=== PATIENT | male | born 1980 | race Caucasian/White ===

== ENCOUNTER 2018-11-17 20:59 | Emergency (ER) | payer SELFPAY ==
[2018-11-17 21:00] VITALS: BP 124/75; PULSE 81; RESP 15; TEMP 36.3; BMI 23.7
--- NOTE | 2018-11-17 21:10 | EKG12_ITS ---
Test Reason : GEN ILLNESS Blood Pressure : / mmHG Vent. Rate : 067 BPM Atrial Rate : 067 BPM P-R Int : 152 ms QRS Dur : 112 ms QT Int : 436 ms P-R-T Axes : 064 058 -14 degrees QTc Int : 460 ms Normal sinus rhythm Nonspecific T wave abnormality Prolonged QT Abnormal ECG Confirmed by ANTONIA MARTINO, JENNIFER ([id number]), department editor SUSAN BRISENO ([id number]) on 11/21/2018 4:34:22 PM Referred By: COOKIE Confirmed By:JENNIFER KNIGHT MD
--- NOTE | 2018-11-17 21:11 | ED.VISSUMM ---
- ER Visit Summary Date of Service: 11/17/18 Chief Complaint: Headache and sinus congestion History of Present Illness: The patient is a 38 M who has a headache and sinus congestion. He then tells me he has chest pain. He has had this for 2 days. He denies a cough or ear pain. He has not had a fever. He has pain in the left side of the chest. He denies any shortness of breath. He states it is hard to breathing through his nose due to the congestion. He took an Excedrin at 2:00 today which has not helped. Denies any other symptoms. He is a smoker. Physical Examination: Vital signs reviewed. HEENT exam reveals sinus congestion with swollen turbinates bilaterally. Heart is regular rate and rhythm without murmurs. Lungs have normal sounds. He has left axillary chest tenderness to palpation. Abdomen soft nontender. Extremities reveal no edema. Skin exam reveals no rashes. Neurologic exam is at baseline. Test Results: EKG was obtained and was normal sinus rhythm with no ischemic changes. Emergency Department Course and Treatment: Patient appears to have a URI. His pain is likely musculoskeletal. I do not feel is cardiac in nature. Patient will be treated with Mucinex D. He will follow-up with his primary care physician. Treatment Plan: [] Disposition: Discharge Impression: Sinusitis This note was generated with [employer] dictation software. It may contain incorrect words, spelling, and punctuation that were not noted in review of the chart prior to signing ED Disposition - Plan for ED Patient: Chief Complaint: General Illness Referrals: Care Physician,No Primary [Primary Care Provider] -
--- NOTE | 2018-11-17 21:13 | ED.DEP ---
ED Disposition - Plan for ED Patient: Disposition: Home or Assisted Living Chief Complaint: General Illness Instructions: ED Upper Resp Infec No Abx Tx Prescriptions: Guaifenesin/Pseudoephedrne HCl [Mucinex D ER 600-60 mg Tablet] 1 ea PO BID #14 tab.er.12h Referrals: Care Physician,No Primary [Primary Care Provider] -
[2018-11-17 21:57] VITALS: BP 126/86; PULSE 88; RESP 16; O2SAT 98
== END 2018-11-17 21:57 | disposition home or self-care (01) ==
LOC: ED 21:21
PROVIDERS: Emergency Provider Emergency Medicine
DX: J01.90 Acute sinusitis, unspecified (principal); R07.9 Chest pain, unspecified; F17.200 Nicotine dependence, unspecified, uncomplicated
CPT/HCPCS: 93005; 99282

== ENCOUNTER 2019-03-16 18:34 | Emergency (ER) | payer SELFPAY ==
[2019-03-16 18:36] VITALS: BP 131/95; PULSE 79; RESP 17; TEMP 36.7; O2SAT 96; BMI 23.7
--- NOTE | 2019-03-16 19:34 | ED.VISSUMM ---
- ER Visit Summary Date of Service: 03/16/19 Chief Complaint: Nail in left index finger History of Present Illness: The patient is a 38 M who presents 1 hour after accidentally shooting a nail into his left index finger using a nail gun. Patient states his tetanus is updated within the last 5 years. He is having pain, worse with trying to move the finger. He denies any other injuries. Physical Examination: Awake and alert in no distress. Patient has a nail in the left index finger at the level of the PIP joint, PIP joint in a state of partial flexion, patient unable to flex or extend the joint any further due to position of nail, cap refill intact distally, sensation intact. No other injury noted. Test Results: [ Clinical Impression(s) from Imaging Studies Finger X-Ray 03/16/19 19:40 IMPRESSION: 1. Second digit metallic foreign body in the soft tissues. No fractures seen. Electronically Signed: Tapan Piedra MD at 19:54 EDT , Service support , Medications Given Discontinued Medications Hydrocodone Bitart/Acetaminophen (Polaris 5mg-325mg) 1 tablet PO X1 ONE Stop: 03/16/19 19:36 Last Admin: 03/16/19 19:46 Dose: 1 tablet Hydrocodone Bitart/Acetaminophen (Polaris 5mg-325mg) 0 tablet PO .TAKE HOME MED HARSH Last Admin: 03/16/19 22:54 Dose: 4 tablet Hydrocodone Bitart/Acetaminophen (Polaris 5mg-325mg) 1 tablet PO X1 ONE Stop: 03/16/19 22:40 Last Admin: 03/16/19 22:54 Dose: 1 tablet Cephalexin (Keflex) 500 mg PO X1 ONE Stop: 03/16/19 22:40 Last Admin: 03/16/19 22:55 Dose: 500 mg Lidocaine HCl (Lidocaine Hcl 1% Mdv) 0 ml INFILT X1 ONE Stop: 03/16/19 19:53 Last Admin: 03/16/19 22:55 Dose: 10 ml Naproxen (Naprosyn) 500 mg PO X1 ONE Stop: 03/16/19 22:40 Last Admin: 03/16/19 22:55 Dose: 500 mg Emergency Department Course and Treatment: Patient was certain that his tetanus was updated within the last few years. Patient was given Polaris for pain. X-ray showed no bony involvement. The index finger and base of it were copiously cleansed with Betadine. A digital block was performed of the index finger with 8 cc of lidocaine without epinephrine. Good anesthesia was achieved. The nail was easily removed with gentle pressure. The resulting puncture wounds were then copiously irrigated with sterile saline. Patient was given additional medication for pain. He was also started on Keflex for infection prophylaxis. Patient had pain with attempts to move the PIP joint but passive range of motion was intact. The finger was splinted and patient was given follow-up with orthopedics. He was discharged home with prescription for naproxen for mild to moderate pain, Polaris for severe pain and Keflex for antibiotic prophylaxis. Patient is to return if any further concerns. Discharged home in improved condition. Treatment Plan: [] Disposition: [] Impression: Foreign body in the left index finger, nail in soft tissue of left index finger without bony involvement status post removal This note was generated with [employer] dictation software. It may contain incorrect words, spelling, and punctuation that were not noted in review of the chart prior to signing ED Disposition - Plan for ED Patient: Disposition: Home or Assisted Living Instructions: ED Foreign Body Soft Tissue Removed Prescriptions: Hydrocodone Bitart/Apap 5-325 [Polaris 5MG-325MG] 1 tab PO Q6H PRN PRN 3 Days #10 tab PRN Reason: Pain Cephalexin [Keflex] 500 mg PO Q6 #40 cap RX: Naproxen [Naprosyn] 500 mg PO BID PRN #20 tab Referrals: Care Physician,No Primary [[facility] Care Provider[facility]-5 Days if not improving Arlin Lau DO [STAFF PHYSICIAN] - As soon as possible Additional Instructions: Please take the antibiotic as prescribed for the full course even if you feel better before it is complete. You may use the naproxen for mild to moderate pain in the Polaris for severe pain. Keep the hand clean and keep the areas of injury clean and dry. Keep it splinted for the first 24 hours. Please follow-up with the orthopedic doctor, calling Tuesday to make an appointment for within 1 week for another evaluation. If you have any worsening of your condition or any new concerning symptoms, please return immediately to the emergency department for another evaluation.
--- NOTE | 2019-03-16 19:40 | RAD_ITS ---
STUDY: X-RAY - LEFT HAND, ATTENTION SECOND FINGER REASON FOR EXAM: Male, 38 years old. Nail gun injury involving the second digit TECHNIQUE: 3 view(s) of the finger were obtained. COMPARISON: None. FINDINGS: Normal metacarpal head. Normal metacarpophalangeal joint. Normal proximal phalanx. Normal middle phalanx. Normal distal phalanx. Normal proximal interphalangeal joint. Normal distal interphalangeal joint. There is soft tissue swelling of the second digit. A metallic nail traverses the medial mid finger but does not appear to traverse the bone. RAD/Finger(s) Min 2 Views IMPRESSION: 1. Second digit metallic foreign body in the soft tissues. No fractures seen. Electronically Signed: Tapan Piedra MD at 19:54 EDT , Service support ,
[2019-03-16] MEDS: HYDROcodone Bitartrate/Apap 5/325 Tablet PO ×3 (19:46→22:54)
--- NOTE | 2019-03-16 22:16 | ED.RN ---
PT'S YOUNG SON CAME TO TRIAGE AND STATES MY MOM WANTS TO KNOW HOW THE NAIL IS GOING TO BE TAKEN OUT OF MY DAD'S FINGER. THIS NURSE IN TO SPEAK WITH THE PT AND VISITORS. PT SAID NOTHING. I ATTEMPTED TO CONFIRM WHAT INFORMATION THE PT IS REQUESTING. THE STARTED CUSSING AND SCREAMING AT THE YOUNG SON. STATES THIS IS RIDICULOUS. WE HAVE BEEN HERE FOR [address] IS NOT IN HERE IN THE NEXT HOUR AND A HALF WE ARE LEAVING ARE LEAVING. THIS NURSE INFORMED THE PT AND VISITOR THAT THE DR WILL BE IN SOON POSSIBLE AND IT IS THEIR RIGHT TO LEAVE IF THEY WISH.
--- NOTE | 2019-03-16 22:19 | ED.RN ---
PATIENT'S WAS VERY UNHAPPY ABOUT WAIT TIME FOR PROCEDURE TO REMOVE THE NAIL FROM HER 'S FINGER. PATIENT USED INAPPROPRIATE LANGUAGE TO SHOW HER FRUSTRATION. THIS NURSE TOLD HER THAT D/T MULTIPLE TRAUMAS AND CRITICAL PATIENT'S IT PUT THE DOCTOR BEHIND. CHARGE NURSE ESTEFANIA ALSO WENT IN AND SPOKE TO THEM.
[2019-03-16] MEDS: Naproxen 500 MG Tablet PO (22:55)
[2019-03-16] MEDS: Cephalexin 250 MG Capsule 500 MG PO (22:55)
[2019-03-16 22:58] VITALS: BP 120/78; PULSE 75; RESP 16; O2SAT 97
== END 2019-03-16 22:59 | disposition home or self-care (01) ==
PROVIDERS: Emergency Provider Emergency Medicine
DX: S60.451A Superficial foreign body of left index finger, initial encounter (principal); W29.4XXA Contact with nail gun, initial encounter; Y93.9 Activity, unspecified; Y92.9 Unspecified place or not applicable
CPT/HCPCS: 73140; 99285

== ENCOUNTER 2019-06-26 12:11 | Emergency (ER) | payer SELFPAY ==
[2019-06-26 12:11] VITALS: BP 120/58; PULSE 57; RESP 16; TEMP 36.7; O2SAT 97; BMI 21.7
[2019-06-26 14:06] VITALS: BP 114/77; PULSE 69; RESP 16; TEMP 36.4; O2SAT 100
--- NOTE | 2019-06-26 15:27 | ED.DCSUM_ITS ---
- ER Visit Summary Date of Service: 06/26/19 Chief Complaint: Abscess History of Present Illness: The patient is a 39 M who presents with abscess to his right gluteal area that is been getting worse over the past 2 weeks. Patient states he was using warm compresses at home. Patient states he had antibiotics at home that he was taking with no relief. Patient states the pain is worse with sitting. Patient denies any fevers or chills. Patient denies any discharge or drainage. Physical Examination: Vital signs are stable. Patient is afebrile. Patient is in no acute distress. Skin is warm and dry. There is tender abscess over the left lower gluteal area. There is some mild fluctuance. There is no active discharge or drainage. There is some mild surrounding erythema. There is some induration. Sensation was intact to light touch bilaterally in the lower extremities. Strength is 5/5 bilaterally. There is good range of motion. Emergency Department Course and Treatment: The wound was cleaned and prepped in a sterile manner. Wound was anesthetized 1% plain lidocaine locally. A #11 blade scalpel was used to make a cruciate incision. There is moderate amount of purulent drainage expressed. Patient tolerated procedure well. His dressing was applied. Patient was given a prescription for Keflex. Patient was instructed to use Tylenol or ibuprofen as needed for pain. Patient understood and was agreeable with the plan. Patient was instructed to follow-up with his primary care physician in 5 to 7 days. All questions were answered. Disposition: Discharge home Impression: Left gluteal abscess This note was generated with [employer] dictation software. It may contain incorrect words, spelling, and punctuation that were not noted in review of the chart prior to signing ED Disposition - Plan for ED Patient: Disposition: Home or Assisted Living Diagnosis: Abscess, gluteal, left Instructions: ABSCESS, Incision and Drainage Prescriptions: Cephalexin [Keflex] 500 mg PO Q6 #40 cap Prescription Printed Referrals: Care Physician,No Primary [Primary Care Provider] - Benedict Brown MD [NON-STAFF] - 5-7 Days
[2019-06-26 15:41] VITALS: BP 118/79; PULSE 56; RESP 16; O2SAT 99
== END 2019-06-26 15:46 | disposition home or self-care (01) ==
PROVIDERS: Emergency Provider Emergency Medicine
DX: L02.31 Cutaneous abscess of buttock (principal); F17.200 Nicotine dependence, unspecified, uncomplicated
CPT/HCPCS: 10060; 99283

== ENCOUNTER 2020-04-17 09:53 | Emergency (ER) | payer MEDICAID, SELFPAY ==
[2020-04-17 09:54] VITALS: BP 110/65; PULSE 50; RESP 20; TEMP 36.3; O2SAT 97; BMI 22.4
[2020-04-17 10:09] VITALS: O2SAT 98
--- NOTE | 2020-04-17 10:13 | EKG12_ITS ---
Test Reason : SOB Blood Pressure : / mmHG Vent. Rate : 092 BPM Atrial Rate : 092 BPM P-R Int : 168 ms QRS Dur : 100 ms QT Int : 408 ms P-R-T Axes : 053 -29 267 degrees QTc Int : 504 ms Sinus rhythm with frequent Premature ventricular complexes ST & T wave abnormality, consider lateral ischemia Prolonged QT Abnormal ECG Confirmed by VELMA MARTINO, SHAYY ([id number]), editorial cartoonist YEISON BARKLEY ([id number]) on 04/21/2020 2:01:20 PM Referred By: NANCY Confirmed By:JOHN CARREON MD
--- NOTE | 2020-04-17 10:15 | ED.DCSUM_ITS ---
- ER Visit Summary Date of Service: 04/17/20 Chief Complaint: Shortness of breath History of Present Illness: The patient is a 39 M with no past medical history. Prior appendectomy. Patient previously smoked 2 packs/cigarettes a day for 15 to 20 years but quit a month ago. States is been short of breath for approximately a week. With wheezing. He denies any history of DVT or PE. No recent travel, surgery or immobilization. No leg pain or swelling. No hemoptysis. He denies any obvious [place] exposure. He denies any cough nor fever nor chills. States he has been short of breath constantly for the week. Worse with exertion. Denies any pleuritic or specific chest pain. Physical Examination: Middle-aged male no acute distress vital signs stable afebrile. Pulse ox 97% on room air no signs hypoxia. HEENT exam unremarkable. Patient does not look septic or toxic. He is in no distress. He does not have labored breathing. He is not tripoding. H EENT exam unremarkable. Neck nontender no lymphadenopathy. No JVD. Lungs clear to auscultation bilaterally. Heart regular rate and rhythm no murmur rate about 50. Chest wall nontender. No crepitus. No subcu air. Abdomen soft nontender normal bowel sounds no peritoneal signs. Extremities moves all 4. Calves nontender without edema or cords. Neurologically is awake and alert with no focal motor deficits. Test Results: White count of 7. Hemoglobin 14. No bands. Chemistries unremark able normal creatinine and gap. Troponin normal. EKG sinus rhythm rate of 92 with PVCs. No signs of [place] or ischemia. Chest x-ray there is density in the right lower lobe which is asymmetrical this could be secondary vascular congestion as per the radiologist but with his complaints I am in a treat this is a possible infiltrate. Emergency Department Course and Treatment: Gentleman with shortness of breath with an unimpressive exam. Will be treated with 1 aerosol treatment. Undergo a cardiac work-up. Infectious etiology versus exacerbation of underlying previously undiagnosed lung disease versus cardiac or other etiology. He has no history of DVT or PE. No risk factors. Patient is doing well on repeat exam at 12:10 PM. I retook his temperature was 97.9. Clinically he is doing well. He and I went over his test results and his chest x-ray. He will be started on 1 dose of Zithromax here and prednisone. I do think there is a component here of inflammation of his lungs from his chronic smoking history. Treatment Plan: Prednisone daily for 5 days. Zithromax Z-SHANITA first dose given in ER. Outpatient follow-up. Disposition: Discharge Impression: Acute dyspnea Rule out right lower lobe pneumonia Bronchospasm This note was generated with [employer] dictation software. It may contain incorrect words, spelling, and punctuation that were not noted in review of the chart prior to signing ED Disposition - Plan for ED Patient: Referrals: Care Physician,No Primary [Primary Care Provider] -
[2020-04-17 10:32] VITALS: PULSE 101; RESP 18
[2020-04-17 10:36] VITALS: BP 91/69; PULSE 94; RESP 10; O2SAT 98; O2SAT 99
[2020-04-17] MEDS: Ipratropium/Albuterol Sulfate 3 ML AMPUL.NEB INHALATION (10:37)
[2020-04-17 10:43] LABS: Absolute Lymphocyte Count 1.53 X10^3/uL (0.83-4.51); Absolute Neutrophil Count 5.2 X10^3/uL (2.0-7.7); Basophil# 0.09 X10^3/uL; Basophil% 1.2 % (0-1); Eosinophil# 0.28 X10^3/uL; Eosinophils% 3.7 % (0-5); Hematocrit 45.2 % (40-54); Hemoglobin 14.6 g/dL (13.0-16.5); Lymphocyte # 1.53 X10^3/ul (4.0); Mean Corp Hgb Conc 32.3 g/dL (32-36); Mean Corpuscular Hgb 30.1 pg (27.0-32.0); Mean Corpuscular Volume 93.2 fL (80-94); Monocyte# 0.57 X10^3/uL; Monocyte% 7.4 % (0-10); NRBC Flagged by Analyzer 0 % (0-5); Neutrophil # 5.17 X10^3/uL (2.7-7.7); Neutrophil % 67.4 % (47-70); Platelet Count 251 K/mm3 (150-450); RBC Distribution Width CV 13.3 % (11.6-14.6); RBC Distribution Width SD 45.3 fl (35.1-43.9); Red Blood Count 4.85 M/mm3 (4.6-6.2); White Blood Count 7.7 K/mm3 (4.4-11.0)
--- NOTE | 2020-04-17 10:50 | RAD_ITS ---
STUDY: X-RAY CHEST REASON FOR EXAM: Male, 39 years old. SOB x2 DAYS TECHNIQUE: Single AP portable view of the chest. COMPARISON: None. FINDINGS: EKG electrodes are seen. Hyperinflation. Mild degree of vascular congestion. There is no demonstrated pleural abnormality. There is mild cardiac enlargement. Normal mediastinum and natanael. Normal visualized pulmonary arteries. Normal visualized aortic arch and descending thoracic aorta. Normal visualized thoracic spine. Normal visualized ribs, clavicles, and shoulders. There is no demonstrated abnormality of the visualized soft tissue structures of the upper abdomen. RAD/Chest 1 View (Portable) IMPRESSION: Mild degree of cardiomegaly and vascular congestion. Electronically Signed: Casey Jiang, at 11:26 EDT , Service support ,
[2020-04-17 10:59] LABS: Anion Gap 4 (5-15); BUN 20 mg/dL (7-18); BUN/Creat Ratio 18.2 RATIO (10-20); Calcium,Total 8.5 mg/dL (8.5-10.1); Chloride 110 mmol/L (98-107); EST Glomerular Filtration Rate 79 mL/min (>60); Est Glom Filt Rate - Afr Amer 96 mL/min (>60); Estimated Creatinine Clearance 99.31 ml/min; Glucose 86 mg/dL (74-106); Sodium Level 139 mmol/L (136-145)
--- NOTE | 2020-04-17 12:14 | ED.DEP ---
ED Disposition - Plan for ED Patient: Disposition: Home or Assisted Living Instructions: ED PNEUMONITIS Adult Prescriptions: Prednisone [Deltasone] 40 mg PO DAILY 5 Days tab Prescription Printed Azithromycin [Zithromax] 250 mg PO DAILY #4 tab Prescription Printed Referrals: Parish Todd MD [STAFF PHYSICIAN] - 3-5 Days Additional Instructions: Plenty of fluids and rest. Daily prednisone to help you with the wheezing and inflammation in your lungs. The antibiotic Zithromax in case this is an early pneumonia. 1 pill a day for 4 more days starting tomorrow we gave you your first dose in the ER. You are doing the right thing by stopping smoking a month or so ago continue to not smoke. Follow-up with a physician for repeat evaluation.
[2020-04-17 13:08] VITALS: BP 92/78; PULSE 90; RESP 18; O2SAT 100
[2020-04-17] MEDS: Azithromycin 250 MG Tablet 500 MG PO (13:08)
[2020-04-17] MEDS: predniSONE 20 MG Tablet 40 MG PO (13:09)
== END 2020-04-17 13:22 | disposition home or self-care (01) ==
PROVIDERS: Emergency Provider Emergency Medicine
DX: R06.00 Dyspnea, unspecified (principal); J18.9 Pneumonia, unspecified organism; J98.01 Acute bronchospasm; I49.3 Ventricular premature depolarization; Z87.891 Personal history of nicotine dependence
CPT/HCPCS: 71045; 80048; 84484; 85025; 93005; 94640; 99285; J7030; A4216

== ENCOUNTER 2020-04-23 11:54 | Emergency (ER) | payer MEDICAID, SELFPAY ==
[2020-04-23 11:55] VITALS: BP 107/91; PULSE 88; RESP 17; TEMP 36.8; O2SAT 98; BMI 23.8
[2020-04-23 12:00] VITALS: BP 107/91; PULSE 88; RESP 17; TEMP 36.8; O2SAT 98
--- NOTE | 2020-04-23 12:12 | CT_ITS ---
STUDY: CTA CHEST REASON FOR EXAM: Male, 39 years old. SOB RADIATION DOSAGE (If Supplied By Facility): CTDIvol = ( 8.11 ) mGy, DLP = ( 198.35 ) mGycm TECHNIQUE: The examination was performed with the intravenous administration of 100ml isovue 370. Post-processing of the angiographic images was performed, with multiplanar reformation and 3D reconstruction. Individualized dose optimization techniques were used for this CT. COMPARISON: None. FINDINGS: Normal enhancement of the main pulmonary artery and right and left pulmonary arteries. Normal enhancement of the bilateral peripheral pulmonary arteries. There is no demonstrated pulmonary embolism. Normal thoracic aorta and visualized great vessels. There is no demonstrated aortic dissection. There is cardiomegaly. Left ventricular enlargement. Diffuse wall thickness of the left ventricle. Normal mediastinum. Normal hilar regions. Normal visualized trachea and bronchi. The lungs are well expanded. Small bilateral pleural effusions slightly worse on the right side with a mild degree of increased interstitial markings more prominent in the lower lobes. Mild degree of CHF should be ruled out. Normal pleura. Normal chest wall structures. Normal osseous structures. Normal visualized upper abdomen. CT/CTA Chest W/WO Contrast IMPRESSION: Moderate cardiomegaly with diffuse hypertrophy of the left ventricle. Small bilateral pleural effusions slightly worse on the right side with increased interstitial markings suggestive of mild degree of CHF. Electronically Signed: aCsey Jiang, at 13:58 EDT , Service support ,
--- NOTE | 2020-04-23 12:12 | EKG12_ITS ---
Test Reason : SOB Blood Pressure : / mmHG Vent. Rate : 096 BPM Atrial Rate : 096 BPM P-R Int : 162 ms QRS Dur : 102 ms QT Int : 368 ms P-R-T Axes : 058 -30 266 degrees QTc Int : 464 ms Sinus rhythm with occasional Premature ventricular complexes Left axis deviation Nonspecific T wave abnormality Prolonged QT Poor R wave progression Abnormal ECG Confirmed by CLAUDETTE MARTINO, WINDY ([id number]), news assignment editor SUSAN BRISENO ([id number]) on 04/25/2020 11:12:17 AM Referred By: JOE Confirmed By:WINDY WILKINS MD
--- NOTE | 2020-04-23 12:13 | ED.VIS.GEN ---
History of Present Illness Chief Complaint: Shortness of Breath Informant: Patient Onset: Weeks Context: Gradual Onset Current Severity: Moderate Maximum Severity: Moderate Narrative: Patient present secondary to shortness of breath and lower chest pain. Patient was seen here on the for the same. At that time there was a right lower lobe density noted on chest x-ray which may represent pneumonia. He was treated with Zithromax and prednisone. Patient states he finished that medication a couple days ago but is noted no improvement in his symptoms. He describes dyspnea that is worse with exertion. He denies fever or chills. He denies cough. He denies known Covid exposure. Past Medical History - Allergies and Home Meds Allergies/Adverse Reactions: Allergies No Known Allergies Allergy (Verified 04/23/20 11:55) Primary Care Physician: Care Physician,No Primary [Primary Care Provider] - Prior records reviewed: Yes Smoking Status: Former smoker Review of Systems General: Denies: Chills, Fever Eyes: Denies: Visual changes - bilaterally ENT: Denies: Bilateral ear pain Cardiovascular: Reports: Chest pain Respiratory: Reports: Dyspnea. Denies: Cough Gastrointestinal: Denies: Abdominal pain, Nausea, Vomiting, Diarrhea Musculoskeletal: Denies: Swelling, Extremity Pain Skin: Denies: Rash Hematologic: Denies: Easy bruising, Easy bleeding Allergy: Denies: Uticaria Physical Exam Vital Signs/Narrative: Vital Signs Temp Pulse Resp BP Pulse Ox 04/23/20 12:00 98.3 F 88 17 107/91 H 98 04/23/20 11:55 98.3 F 88 17 107/91 H 98 Inital Vital Signs reviewed: Yes General: Well nourished, Well developed Head: Normocephalic ENT: Moist mucous membranes Neck: Supple Cardiovascular: Regular rate, Regular rhythm Respiratory: No distress, CTA bilaterally Abdomen: Soft, Tender - Epigastric tenderness to palpation.. Negative for: Guarding, Rebound tenderness Skin: Normal color Neurological: Alert, Oriented x3 Psychological: Normal affect Diagnostic/Tx/Re-eval Impressions Chest CTA 04/23/20 12:12 IMPRESSION: Moderate cardiomegaly with diffuse hypertrophy of the left ventricle. Small bilateral pleural effusions slightly worse on the right side with increased interstitial markings suggestive of mild degree of CHF. Electronically Signed: Casey Jiang, at 13:58 EDT , Service support , 04/23/20 12:12 CTA Chest W/WO Contrast [CT] Stat Laboratory Results 04/23/20 04/23/20 04/23/20 12:25 12:25 12:25 WBC 9.1 RBC 4.89 Hgb 14.7 Hct 45.8 MCV 93.7 MCH 30.1 MCHC 32.1 RDW Std Deviation 47.9 H RDW Coeff of Jonathan 14.0 Plt Count 302 MPV 10.1 Immature Gran % (Auto) 0.400 Neut % (Auto) 64.3 Lymph % (Auto) 27.8 [place] % (Auto) 6.0 Eos % (Auto) 0.8 Baso % (Auto) 0.7 Absolute Neuts (auto) 5.9 Absolute Lymphs (auto) 2.54 Nucleated RBC % 0 Sodium 140 Potassium 4.2 Chloride 108 H Carbon Dioxide 25.0 Anion Gap 7 BUN 25 H Creatinine 1.26 Estim Creat Clear Calc 87.25 Est GFR (MDRD) Af Amer 82 Est GFR (MDRD) Non-Af 68 BUN/Creatinine Ratio 19.8 Glucose 93 Calcium 8.5 Total Bilirubin 0.70 Direct Bilirubin 0.29 AST 171 H ALT 243 H Alkaline Phosphatase 109 Troponin I 0.032 B-Natriuretic Peptide 1450.7 H Total Protein 6.6 Albumin 3.4 Globulin 3.2 Lipase 180 - EKG Initial EKG Interpretation: Sinus Rhythm - Sinus at 96 with single PVC. T inversions are noted in V5 and V6 only. EKG is grossly unchanged when compared to prior study of April 17, 2020. - Medical Decision Making Patient has remained stable on room air. I spoke with Dr. Copeland, on-call for cardiology. Concern is that the patient has developed cardiomyopathy. He did request a Covid test to be sent and patient be seen in the office next week. We will start the patient on Lasix 40 mg a day. I will give him a work note. ED Disposition - Plan for ED Patient: Disposition: Home or Assisted Living Diagnosis: CHF (congestive heart failure), Cardiomyopathy Instructions: ED CHF General Prescriptions: Furosemide [Lasix] 40 mg PO DAILY #10 tab Transmission Status: Pending to [facility] #30 Referrals: Eliot Copeland MD [STAFF PHYSICIAN] - 1 Week
[2020-04-23 12:45] LABS: Absolute Lymphocyte Count 2.54 X10^3/uL (0.83-4.51); Absolute Neutrophil Count 5.9 X10^3/uL (2.0-7.7); Basophil# 0.06 X10^3/uL; Basophil% 0.7 % (0-1); Eosinophil# 0.07 X10^3/uL; Eosinophils% 0.8 % (0-5); Hematocrit 45.8 % (40-54); Hemoglobin 14.7 g/dL (13.0-16.5); Lymphocyte # 2.54 X10^3/ul (4.0); Lymphocyte % 27.8 % (19-41); Mean Corp Hgb Conc 32.1 g/dL (32-36); Mean Corpuscular Hgb 30.1 pg (27.0-32.0); Mean Corpuscular Volume 93.7 fL (80-94); Mean Platelet Vol. 10.1 fl (6.2-12.0); Monocyte# 0.55 X10^3/uL; NRBC Flagged by Analyzer 0 % (0-5); Neutrophil # 5.88 X10^3/uL (2.7-7.7); Neutrophil % 64.3 % (47-70); Platelet Count 302 K/mm3 (150-450); RBC Distribution Width SD 47.9 fl (35.1-43.9); Red Blood Count 4.89 M/mm3 (4.6-6.2); White Blood Count 9.1 K/mm3 (4.4-11.0)
[2020-04-23 13:00] VITALS: BP 105/89; PULSE 91; RESP 17; TEMP 36.8; O2SAT 96
[2020-04-23 13:01] LABS: AST(SGOT) 171 U/L (15-37); Alanine Aminotransfer ALT/SGPT 243 U/L (16-61); Albumin, Serum 3.4 g/dL (3.2-5.0); Alkaline Phosphatase 109 U/L (45-117); Anion Gap 7 (5-15); BUN 25 mg/dL (7-18); BUN/Creat Ratio 19.8 RATIO (10-20); Bilirubin, Direct 0.29 mg/dL (0.00-0.30); Calcium,Total 8.5 mg/dL (8.5-10.1); Chloride 108 mmol/L (98-107); Creatinine, Serum 1.26 mg/dL (0.70-1.30); EST Glomerular Filtration Rate 68 mL/min (>60); Est Glom Filt Rate - Afr Amer 82 mL/min (>60); Estimated Creatinine Clearance 87.25 ml/min; Globulin 3.2 g/dL (2.2-4.2); Glucose 93 mg/dL (74-106); Lipase 180 U/L (73-393); Potassium 4.2 mmol/L (3.5-5.1); Protein, Total 6.6 g/dL (6.4-8.2); Sodium Level 140 mmol/L (136-145)
[2020-04-23 14:00] VITALS: BP 106/89; PULSE 90; RESP 18; TEMP 36.8; O2SAT 96
[2020-04-23 14:50] LABS: BNP,B-Type NATRIURETIC PEPTIDE 1450.7 pg/mL (0-100)
[2020-04-23 15:00] VITALS: BP 105/84; PULSE 84; RESP 18; TEMP 36.7; O2SAT 98
[2020-04-23 16:00] VITALS: BP 118/105; PULSE 81; RESP 18; TEMP 36.9; O2SAT 98
[2020-04-23] MEDS: Furosemide 40 MG Tablet PO (16:34)
== END 2020-04-23 16:42 | disposition home or self-care (01) ==
PROVIDERS: Emergency Provider Emergency Medicine
DX: I50.9 Heart failure, unspecified (principal); I42.9 Cardiomyopathy, unspecified; I49.3 Ventricular premature depolarization; Z87.891 Personal history of nicotine dependence
CPT/HCPCS: 71275; 80048; 80076; 83690; 83880; 84484; 85025; 87635; 93005; 99285; G2023; Q9967; A4216; U0003

== ENCOUNTER → 2020-11-13 09:09 | Outpatient (CLI) | payer MEDICAID, SELFPAY ==
[2020-10-29 09:49] VITALS: BMI 24.9
[2020-11-13 10:28] LABS: Glucose 128 mg/dL (74-106)
[2020-11-14 14:40] LABS: C-Peptide 8.6 ng/mL (1.1-4.4)
== END ==
PROVIDERS: PCP Internal Medicine; Referring Provider Internal Medicine; Visit Provider Internal Medicine
DX: E16.2 Hypoglycemia, unspecified (principal)
CPT/HCPCS: 36415; 82533; 82947; 83525; 84681

== ENCOUNTER → 2020-12-31 07:47 | Outpatient (CLI) | payer MEDICAID, SELFPAY ==
[2020-10-29 09:49] VITALS: BMI 24.9
--- NOTE | 2020-12-31 07:49 | CT_ITS ---
STUDY: CT BRAIN WITHOUT CONTRAST REASON FOR EXAM: Male, 40 years old. Persistent headaches, frontal RADIATION DOSAGE (If Supplied By Facility): CTDIvol = ( 44.99 ) mGy, DLP = ( 829.85 ) mGycm TECHNIQUE: Transaxial CT imaging of the brain was performed without administration of intravenous contrast material. Individualized dose optimization techniques were used for this CT. COMPARISON: Comparison is made with prior study dated 04/15/2012. FINDINGS: Normal soft tissue structures. Normal calvarium. Normal size ventricles and extra-axial spaces for the patient''s age. Normal white matter tracts of the cerebral hemispheres. Normal basal ganglia and thalami. Normal brainstem. There is a 2.3 cm x 1 cm triangular-shaped area of the encephalomalacia in the posterior medial aspect of the right cerebellar hemisphere. No surrounding edema or mass effect. This may represent either prior surgical intervention or prior ischemic change. There is no intracranial hemorrhage. There are no findings of an acute ischemic infarction. Normal visualized paranasal sinuses. CT/Brain/Head without Contrast IMPRESSION: 2.3 cm x 1 cm triangle shaped area of encephalomalacia in the posterior medial aspect of the right cerebellar hemisphere. No other abnormality is seen. Electronically Signed: Casey Jiang MD at 8:59 EST , Service support ,
== END ==
PROVIDERS: PCP Internal Medicine; Referring Provider Internal Medicine; Visit Provider Internal Medicine
DX: R51.9 Headache, unspecified (principal)
CPT/HCPCS: 70450

== ENCOUNTER → 2021-01-16 12:51 | Outpatient (CLI) | payer MEDICAID, SELFPAY ==
[2020-10-29 09:49] VITALS: BMI 24.9
--- NOTE | 2021-01-16 12:52 | MRI_ITS ---
STUDY: MRI BRAIN WITHOUT CONTRAST REASON FOR EXAM: Male, 40 years old. Encephalomalcia seen on CT brain, MÉNDEZ TECHNIQUE: Standardized multiplanar fat and water weighted pulse sequences were obtained. COMPARISON: CT 12/31/2020 FINDINGS: Normal size of the ventricles and extra-axial spaces for the patient''s age. Normal white matter tracts of the supratentorial brain. Some encephalomalacia and gliosis in the inferior right occipital lobe consistent likely from the prior trauma or infarct There is no evidence for recent intracranial ischemia or other cause of cytotoxic edema on diffusion weighted imaging (DWI). Normal T2* images of the brain without demonstrated susceptibility artifact. There is no demonstrated hemosiderin stain. Normal bilateral basal ganglia. Normal thalami. There is no extra-axial fluid accumulation. Normal flow voids within the major intracranial circulation suggesting patency by spin echo criteria. Normal sella turcica, pituitary gland, infundibular stalk, optic chiasm and hypothalamus. Normal tectal plate and pineal gland. Normal midbrain, pedro and medulla. Normal cerebellum. Normal basal cisterns. Normal bilateral temporal bones. Normal bilateral internal auditory canals. No demonstrated orbital abnormality, within the constraints of a routine brain study. Normal visualized paranasal sinuses. Normal calvarium and skull base. Normal visualized soft tissue structures. Normal visualized upper cervical spine. MRI/Brain without Contrast IMPRESSION: Focal encephalomalacia and gliosis in the inferior right occipital lobe likely from prior trauma or infarct. Electronically Signed: Gavin Montano MD at 15:26 EST Tel , Service support ,
[2021-01-16 13:44] VITALS: BP 119/72; PULSE 65; RESP 14; O2SAT 97
[2021-01-16 14:00] VITALS: BP 105/64; PULSE 67; RESP 16; O2SAT 97
--- NOTE | 2021-01-16 14:11 | NURSING ---
PT TOLERATED MRI WELL. AMBULATORY TO CHANGING ROOM. PACER NURSE, CHIVO, RE-PROGRAMMING SICD.
== END ==
PROVIDERS: PCP Internal Medicine; Referring Provider Internal Medicine; Visit Provider Internal Medicine
DX: G93.89 Other specified disorders of brain (principal); G89.29 Other chronic pain; R51.9 Headache, unspecified
CPT/HCPCS: 70551

== ENCOUNTER 2021-02-28 10:47 | Emergency (ER) | payer MEDICAID, SELFPAY ==
[2020-10-29 09:49] VITALS: BMI 24.9
[2021-02-28 10:48] VITALS: BP 101/58; PULSE 70; RESP 16; TEMP 36.8; O2SAT 100; BMI 24.3
--- NOTE | 2021-02-28 11:00 | VDLE_ITS ---
Reason For Study: Pain Procedure LEFT This is a venous duplex using B-mode, color GSV is normal. flow and spectral Doppler. CFV is compressible, spontaneous, phasic, Exam performed portable in ED. competent, and demonstrates normal A preliminary report was called and/or faxed augmentation. to [facility]. FV is compressible, spontaneous, phasic, competent and demonstrates normal augmentation. POP V is compressible, spontaneous, phasic, competent and demonstrates normal augmentation. T/P Trunk is compressible. PTV is compressible. LT PerV is compressible. VL/Venous Duplex US, Unilateral Interpretation Summary There is no evidence of left lower extremity deep vein thrombosis. Left great s aphenous vein appears patent and compressible segmentally. Ordering Physician: Armando Landaverde Referring Physician: Jagruti Irene Performed By: Becka Sierra RVT
--- NOTE | 2021-02-28 11:16 | RAD_ITS ---
STUDY: X-RAY - LEFT KNEE REASON FOR EXAM: Male, 40 years old. Pain TECHNIQUE: 4 view(s) of the knee. COMPARISON: None. FINDINGS: Normal visualized distal femur. Normal visualized proximal tibia and fibula. Normal proximal tibiofibular articulation. There is no demonstrated fracture. Normal medial femorotibial compartment. Normal lateral femorotibial compartment. Normal patellofemoral articulation. There is no demonstrated joint effusion. The soft tissue structures are unremarkable. RAD/Knee 4 or More Views IMPRESSION: Unremarkable x-ray examination of the knee. Electronically Signed: Niraj Sandoval MD at 11:34 EDT Tel , Service support ,
--- NOTE | 2021-02-28 11:25 | ED.VISSUMM ---
- ER Visit Summary Date of Service: 02/28/21 Chief Complaint: Left leg pain History of Present Illness: The patient is a [address] Hernandez. He has a history of PE and CHF from what sounds to be coxsackievirus in April 2020. Ports that he has pain to his left leg that began 2 weeks ago. Is gradually gotten worse. Is an aching pain is 10 out of 10 in severity. Is worsened by walking. Is not taken anything for pain. He denies any trauma. No fall, MVA, or change in activity. Review of systems: General: No fever, chills, cold sweats. Cardiovascular: No chest pain, palpitations. Respiratory: No cough, shortness of breath, dyspnea on exertion. Gastrointestinal: No abdominal pain, nausea, vomiting, diarrhea, melena, or hematochezia. Genitourinary: No dysuria, frequency, hematuria. Skin: No rash. Neuro: No headache, numbness, weakness. Physical Examination: Vitals: Stable. Afebrile. General: Well-nourished and well-developed. Head: Normocephalic atraumatic. Neck: Supple, no lymphadenopathy. No JVD. Nontender. Cardiovascular: Regular rate and rhythm. No murmurs. Respiratory: No respiratory distress. Clear to auscultation bilaterally. Abdominal: Soft, nontender, nondistended, normal bowel sounds. No guarding, rebound, or peritoneal signs. Back: Nontender. Extremities: Moderate tenderness to palpation over the medial side of his right knee and in the popliteal fossa. There is no edema. Has a 2+ dorsalis pedis pulse bilaterally. Normal sensation light touch. Skin: Normal color, no rash. Neurologic: Alert and oriented ?3. Cranial nerves II through XII are intact. Normal strength and sensation. Psych: Normal affect. Test Results: Left lower extremity Doppler is negative. Clinical Impression(s) from Imaging Studies Knee X-Ray 02/28/21 11:16 IMPRESSION: Unremarkable x-ray examination of the knee. Electronically Signed: Niraj Sandoval MD at 11:34 EDT Tel , Service support , Emergency Department Course and Treatment: Patient drove here. He was treated with Tylenol here. He is resting comfortably. Treatment Plan: Patient will be discharged prescription for 10 [place]. Instructed to follow-up his primary care physician 1 week if not improving. I have also suggested that he ice the area and rest. Return to the emergency department for any worsening symptoms. Disposition: To home in improved and stable condition. Impression: 1. Left knee pain, uncertain cause. This note was generated with [employer] dictation software. It may contain incorrect words, spelling, and punctuation that were not noted in review of the chart prior to signing ED Disposition - Plan for ED Patient: Instructions: ED Knee Pain of Uncertain Cause Prescriptions: Hydrocodone Bitart/Apap 5-325 [[place] 5MG-325MG] 1 tablet PO Q4H PRN PRN 2 Days #10 tablet PRN Reason: Pain Referrals: Jagruti Ferrari MD [Primary Care Provider] - 1 Week if not improving
[2021-02-28] MEDS: Acetaminophen 500 MG Tablet 1000 MG PO (11:26)
[2021-02-28 12:49] VITALS: PULSE 52; RESP 16; O2SAT 100
== END 2021-02-28 12:52 | disposition home or self-care (01) ==
LOC: ED 11:33
PROVIDERS: Emergency Provider Emergency Medicine; PCP Internal Medicine
DX: M25.562 Pain in left knee (principal); I50.9 Heart failure, unspecified; Z86.711 Personal history of pulmonary embolism; Z79.01 Long term (current) use of anticoagulants; Z79.899 Other long term (current) drug therapy
CPT/HCPCS: 73564; 93971; 99283

== ENCOUNTER → 2021-04-23 15:13 | Outpatient (CLI) | payer MEDICAID, SELFPAY ==
[2021-04-23 14:24] VITALS: BMI 23.4
[2021-04-23 16:42] LABS: Absolute Lymphocyte Count 1.83 X10^3/uL (0.83-4.51); Absolute Neutrophil Count 3.3 X10^3/uL (2.0-7.7); Basophil# 0.07 X10^3/uL; Basophil% 1.2 % (0-1); Eosinophil# 0.13 X10^3/uL; Eosinophils% 2.2 % (0-5); Hematocrit 43.4 % (40-54); Lymphocyte # 1.83 X10^3/ul (0.83-4.51); Mean Corp Hgb Conc 32.3 g/dL (32-36); Mean Corpuscular Hgb 28.8 pg (27.0-32.0); Mean Corpuscular Volume 89.3 fL (80-94); Mean Platelet Vol. 9.3 fl (6.2-12.0); Monocyte# 0.54 X10^3/uL; Monocyte% 9.2 % (0-10); NRBC Flagged by Analyzer 0 % (0-5); Neutrophil # 3.32 X10^3/uL (2.7-7.7); Neutrophil % 56.2 % (47-70); Platelet Count 319 K/mm3 (150-450); RBC Distribution Width CV 12.7 % (11.6-14.6); RBC Distribution Width SD 41.8 fl (35.1-43.9); Red Blood Count 4.86 M/mm3 (4.6-6.2); White Blood Count 5.9 K/mm3 (4.4-11.0)
[2021-04-23 17:00] LABS: ALB/GLOB Ratio 1.1 RATIO (0.9-2.4); AST(SGOT) 20 U/L (15-37); Alanine Aminotransfer ALT/SGPT 31 U/L (16-61); Alkaline Phosphatase 63 U/L (45-117); Anion Gap 5 (5-15); BUN 14 mg/dL (7-18); BUN/Creat Ratio 12.8 RATIO (10-20); Calcium,Total 9.2 mg/dL (8.5-10.1); Chloride 108 mmol/L (98-107); Creatinine, Serum 1.09 mg/dL (0.70-1.30); EST Glomerular Filtration Rate 80 mL/min (>60); Est Glom Filt Rate - Afr Amer 96 mL/min (>60); Globulin 3.6 g/dL (2.2-4.2); Glucose 79 mg/dL (74-106); Potassium 4.9 mmol/L (3.5-5.1); Protein, Total 7.6 g/dL (6.4-8.2); Sodium Level 140 mmol/L (136-145); T4 Free Direct 1.03 ng/dL (0.76-1.46); Thyroid Stim Hormone (TSH) 1.26 uIU/mL (0.358-3.74)
== END ==
PROVIDERS: PCP Internal Medicine; Referring Provider Physician Assistant; Visit Provider Physician Assistant
DX: G47.00 Insomnia, unspecified (principal)
CPT/HCPCS: 36415; 80053; 84439; 84443; 85025

== ENCOUNTER → 2021-05-21 15:01 | Outpatient (CLI) | payer MEDICAID, SELFPAY ==
[2021-04-23 14:24] VITALS: BMI 23.4
[2021-05-21 16:37] LABS: Hematocrit 42.8 % (40-54); Mean Corp Hgb Conc 32.7 g/dL (32-36); Mean Corpuscular Hgb 29.3 pg (27.0-32.0); Mean Corpuscular Volume 89.5 fL (80-94); Mean Platelet Vol. 9.4 fl (6.2-12.0); Platelet Count 297 K/mm3 (150-450); RBC Distribution Width CV 13.1 % (11.6-14.6); RBC Distribution Width SD 43.1 fl (35.1-43.9); Red Blood Count 4.78 M/mm3 (4.6-6.2)
[2021-05-21 16:50] LABS: Anion Gap 7 (5-15); BUN 16 mg/dL (7-18); BUN/Creat Ratio 11.1 RATIO (10-20); Calcium,Total 8.8 mg/dL (8.5-10.1); Chloride 108 mmol/L (98-107); Creatinine, Serum 1.44 mg/dL (0.70-1.30); EST Glomerular Filtration Rate 58 mL/min (>60); Est Glom Filt Rate - Afr Amer 70 mL/min (>60); Glucose 68 mg/dL (74-106); Sodium Level 141 mmol/L (136-145)
== END ==
PROVIDERS: PCP Internal Medicine
DX: I50.22 Chronic systolic (congestive) heart failure (principal)
CPT/HCPCS: 36415; 80048; 83880; 85027

== ENCOUNTER 2021-08-08 21:52 | Emergency (ER) | payer MEDICAID, SELFPAY ==
[2021-08-08 21:53] VITALS: BP 96/71; PULSE 50; RESP 18; TEMP 36.6; O2SAT 100; BMI 22.4
--- NOTE | 2021-08-08 22:44 | ED.VIS.BACK ---
HPI History of Present Illness Chief Complaint: Back Detail of Chief Complaint: Acute on chronic upper back pain. Informant: patient Onset/Context/Timing Onset: Days Context: Gradual Onset Timing: Continuous Quality: Sharp Location: Thoracic Current Severity: Mild Maximum Severity: Mild Worsened by: improves with Movement and Lifting Relieved by: Remaining Still Associated Symptoms Associated Symptoms: Negative for Numbness, Tingling, Radiation to Right Leg, Radiation to Left Leg, Fever, Abdominal Pain, Dysuria, Unable to Ambulate, Unable to Transfer, Urinary Retention, Urinary Incontinence, Constipation and Fecal Incontinence Narrative Narrative: 41-year-old male history of defibrillator, CHF and currently on heart monitor. Patient has chronic low blood pressure that runs below 100 typically. This is not abnormal tonight. He said 2 years ago he hurt his back could not get Worker's Compensation for that. And says he has had recent upper back pain. Denies any falls or recent trauma. He says primarily from his lower neck and upper thoracic spine out to his shoulder blade. He denies any chest pain or shortness of breath. It is worse with movement, lifting or bending. He has never had back surgery. There is been no fever. Prior similar symptoms: Yes Recent Illness/Hospitalization: [facility], [facility] Medical History Back problem Cardiac defibrillator in place Heart failure Implantable cardioverter-defibrillator (ICD) in situ Home Medications metoprolol succinate 25 mg tablet,extended release 24 hr 25 mg PO DAILY 10/29/20 [History Last Taken Unknown] sacubitril 97 mg-valsartan 103 mg tablet 1 tab PO BID 10/29/20 [History Last Taken Unknown] spironolactone 25 mg tablet 12.5 mg PO DAILY tab 10/29/20 [History Last Taken Unknown] blood sugar diagnostic #100 each 02/02/21 [Rx Last Taken Unknown] blood-glucose meter #1 each 02/02/21 [Rx Last Taken Unknown] lancets #100 each 02/02/21 [Rx Last Taken Unknown] apixaban 5 mg PO BID 02/28/21 [History Last Taken Unknown] trazodone 50 mg tablet 50 mg PO BID #60 tab 05/21/21 [Rx Last Taken Unknown] metaxalone [Skelaxin] 800 mg PO TID 7 Days #21 tab 08/08/21 [Rx Last Taken Unknown] Allergy/AdvReac Type Severity Reaction Status Date / Time No Known Allergies Allergy Verified 08/08/21 21:53 Family History Other Adopted Surgical History History of appendectomy Social History Smoking Status: Never smoker alcohol intake: never substance use type: does not use what type of physical activity do you participate in: none ROS ROS ED ROS Narrative Denies recent illness. Review of Systems ROS Unobtainable: Denies due to encephalopathy Constitutional Constitutional ED: Denies fever(s) Eyes Eyes: Denies change in vision ENT ENT ED: Denies ear pain Cardiovascular Cardiovascular: Denies chest pain Respiratory/Chest Respiratory/Chest: Denies dyspnea Gastrointestinal Gastrointestinal: Denies abdominal pain, nausea or vomiting Genitourinary Genitourinary ED: Denies dysuria Musculoskeletal Musculoskeletal: Denies myalgias Integumentary Denies rash Neurologic Neurologic: Denies headache(s) Psychiatric Psychiatric: Denies depression Endocrine Endocrinology: Denies polyuria Hematologic/Lymphatic Hematologic/Lymphatic: Denies easy bruising Allergic/Immunologic Allergic/Immunologic ED: Denies urticaria EXAM Physical Exam Narrative Exam Narrative: Middle-age male no acute distress his blood pressure is 96/71 but he said that is baseline. Is a chronic history of hypotension. HEENT exam unremarkable. Neck nontender. Lungs clear to auscultation bilaterally. Heart regular rhythm rate about 50 again this is his baseline he has a known bradycardia which they are monitoring. Chest wall nontender. Abdomen soft nontender. Moving all four extremities. No edema. Normal motor strength. Back he has trapezius and parathoracic soft tissue tenderness on the left. No spine tenderness. Jose Alfredo unremarkable. This is consistent with muscle spasm and strain. There is no discoloration or signs of trauma. Neurologically is awake and alert with no focal motor deficits. Const Vital Signs: 08/08/21 21:53 Temperature 97.9 F Temperature Source Temporal Pulse Rate 50 L Respiratory Rate 18 Blood Pressure 96/71 Blood Pressure Mean 79 Pulse Ox 100 Oxygen Delivery Method Room Air Positive well nourished and well developed; Negative for obese or cachectic General Appearance ED: well developed and NAD; Negative for cachectic or pallor Nutritional Appearance: Negative for cachectic or obese HEENT Reports moist mucous membranes Negative for trauma or tenderness Eyes PERRL and EOMs intact bilaterally Neck no lymphadenopathy, supple and no JVD Neck Narrative: Full range of motion. No bony tenderness. Exam consistent with myofascial spasm. General: tenderness Resp normal respiratory effort and clear to auscultation bilaterally Cardio regular rhythm, S1 normal heart sound, S2 normal heart sound and no murmurs Rate: bradycardia GI normal to inspection, nondistended, normoactive bowel sounds, soft to palpation, non-tender, non-distended and no masses Inspection: Negative for abdominal distention Palpation: Negative for tender, guarding or rebound tenderness present Back/Spine Negative for no thoracic nor lumbar tenderness General Back: Negative for CVA tenderness Cervical Spine: paracervical muscle tenderness Thoracic Spine / Upper Back: paraspinal muscle tenderness Lumbar Spine / Lower Back: straight leg raise negative bilaterally Extremity normal to inspection General Extremety ED: Negative for edema or tenderness General Extremity: Negative for edema Neuro oriented x3 and no sensory deficits noted Sensorium / Orientation: alert; Negative for confused, lethargic or stuporous Motor Exam: strength 5/5 throughout; Negative for strength abnormal Psych mental status grossly normal Attitude: No agitated Mood & Affect: Negative for depressed or tearful Skin no rashes or lesions noted and no wounds General Skin Exam: Negative for jaundice or pallor MDM MDM MDM Narrative Medical decision making narrative: 41-year-old no acute distress that has myofascial strain and spasm of the left trapezius region. There is been no recent injury at home think x-rays are warranted. Given Motrin here and Skelaxin discharged home Discharge Plan Triage Chief Complaint: Back ED Provider: Karlos Goldsmith Dx/Rx/DC Orders Clinical Impression: Muscle spasm of back Instructions: Muscle Spasm Prescriptions: New metaxalone [Skelaxin] 800 mg tablet 800 mg PO TID 7 Days Qty: 21 RF: 0 No Action spironolactone 25 mg tablet 12.5 mg PO DAILY RF: 0 Entresto 97-103 mg tablet 1 tab PO BID RF: 0 metoprolol succinate 25 mg tablet extended release 24 hr 25 mg PO DAILY RF: 0 trazodone 50 mg tablet 50 mg PO BID Qty: 60 RF: 1 apixaban 5 MG tablet 5 mg PO BID RF: 0 (DME) blood sugar diagnostic Strip See Rx Instructions .ROUTE .MEDSUPPLY Qty: 100 RF: 0 (DME) blood-glucose meter Misc See Rx Instructions .ROUTE .MEDSUPPLY Qty: 1 RF: 0 (DME) lancets Misc See Rx Instructions .ROUTE .MEDSUPPLY Qty: 100 RF: 0 Primary Care Provider: Jagruti Ferrari Referrals: Jagruti Ferrari MD [Primary Care Provider] - 1 Week if not improving Activity Restrictions/Additional Instructions: Hot shower, warm soaks and massage to your upper back. Skelaxin as a muscle relaxant. Motrin for pain and inflammation. Follow-up with your doctor if not improving. Disposition Disposition: Home, Self Care
[2021-08-08] MEDS: Ibuprofen 600 MG Tablet PO (23:12)
[2021-08-08] MEDS: Metaxalone 800 MG Tablet PO (23:12)
[2021-08-08 23:14] VITALS: PULSE 89; RESP 16
== END 2021-08-08 23:15 | disposition home or self-care (01) ==
PROVIDERS: Emergency Provider Emergency Medicine; PCP Internal Medicine
DX: M62.830 Muscle spasm of back (principal); M54.9 Dorsalgia, unspecified; I95.9 Hypotension, unspecified; I50.9 Heart failure, unspecified; Z95.810 Presence of automatic (implantable) cardiac defibrillator; Z79.01 Long term (current) use of anticoagulants; Z79.899 Other long term (current) drug therapy
CPT/HCPCS: 99282

== ENCOUNTER 2021-08-13 23:24 | Emergency (ER) | payer MEDICAID, SELFPAY ==
[2021-08-13 23:25] VITALS: BP 111/58; PULSE 90; RESP 15; TEMP 36.8; O2SAT 99; BMI 23.1
--- NOTE | 2021-08-13 23:43 | EX.ED.UPPERE ---
HPI History of Present Illness Chief Complaint: Upper Extremity Injury Informant: patient Onset/Context/Timing Onset: Weeks (2) Context: Gradual Onset Timing: Continuous Quality of Pain: Sharp, Aching and Burning Location: Left shoulder Worsened by: Movement Relieved by: Nothing Associated Symptoms Associated Symptoms: Negative for Parasthesia, Weakness and Loss of Funtion Narrative Narrative: Patient presents with left shoulder pain that has been getting worse over the past 2 weeks. Patient states he was seen here recently and was given a prescription for a muscle relaxer. Patient states the pain is sharp, burning, and aching. Patient states it is over the posterior aspect of the left shoulder, left scapula, and left trapezius muscle area. Patient denies any specific trauma or injury. Patient denies any paresthesias or weakness. Patient states his pain is worse whenever he uses the arm especially at work. [facility] Medical History Back problem Cardiac defibrillator in place Heart failure Implantable cardioverter-defibrillator (ICD) in situ Home Medications metoprolol succinate 25 mg tablet,extended release 24 hr 25 mg PO DAILY 10/29/20 [History Last Taken Unknown] sacubitril 97 mg-valsartan 103 mg tablet 1 tab PO BID 10/29/20 [History Last Taken Unknown] blood sugar diagnostic #100 each 02/02/21 [Rx Last Taken Unknown] blood-glucose meter #1 each 02/02/21 [Rx Last Taken Unknown] lancets #100 each 02/02/21 [Rx Last Taken Unknown] apixaban 5 mg PO BID 02/28/21 [History Last Taken Unknown] metaxalone [Skelaxin] 800 mg PO TID 7 Days #21 tab 08/08/21 [Rx Last Taken Unknown] hydrocodone-acetaminophen 1 tab PO Q6H PRN PRN 3 Days #10 tablet 08/13/21 [Rx Last Taken Unknown] Allergy/AdvReac Type Severity Reaction Status Date / Time No Known Allergies Allergy Verified 08/13/21 23:25 Family History Other Adopted Surgical History History of appendectomy Social History Smoking Status: Never smoker alcohol intake: never substance use type: does not use what type of physical activity do you participate in: none ROS ROS ED Constitutional Constitutional ED: Denies chills or fever(s) Eyes Eyes: Denies blurry vision or change in vision ENT ENT ED: Denies rhinorrhea or sore throat Cardiovascular Cardiovascular: Denies chest pain or palpitations Respiratory/Chest Respiratory/Chest: Denies cough or dyspnea Gastrointestinal Gastrointestinal: Denies nausea or vomiting Genitourinary Genitourinary ED: Denies dysuria or hematuria Musculoskeletal Musculoskeletal: Reports neck pain; Denies back pain Integumentary Denies abscess or rash Neurologic Neurologic: Denies headache(s) or weakness Allergic/Immunologic Allergic/Immunologic ED: Denies mouth swelling or urticaria EXAM Physical Exam Const Vital Signs: 08/13/21 23:25 Temperature 98.2 F Temperature Source Temporal Pulse Rate 90 Respiratory Rate 15 Blood Pressure 111/58 L Blood Pressure Mean 75 Pulse Ox 99 Oxygen Delivery Method Room Air Positive well nourished and well developed General Appearance ED: well developed HEENT Reports moist mucous membranes Neck Neck Narrative: There is some mild left paraspinal tenderness. There is no midline tenderness. There is full range of motion. Chest Wall inspection of chest normal and palpation of chest normal Resp normal respiratory effort and clear to auscultation bilaterally Cardio regular rate and regular rhythm GI non-tender Palpation: soft Extremity Extremity Narrative: There is tenderness over the posterior aspect of the left shoulder. There is mild tenderness over the left scapula. There is no bony crepitance or step-off. There is no obvious deformity noted. Range of motion of the left shoulder was limited in all motion secondary to pain. Radial pulses are equal bilateral. Sensation was intact to light touch in the radial, median, and ulnar areas. Strength is 5/5 in the radial, median, and ulnar areas. Neuro oriented x3, CN's II-XII intact bilaterally, moves all extremities, no focal motor deficits and no sensory deficits noted Sensorium / Orientation: alert Psych mental status grossly normal MDM MDM MDM Narrative Medical decision making narrative: X-rays of the left shoulder were obtained. There are 4 views. On my interpretation, there is no acute fracture. There is no dislocation. There is no soft tissue swelling. Radiologist also interpreted the x-rays and agrees. Patient was given a prescription for short course of [place]. Patient instructed use ice to the area. Patient was instructed to follow-up with his primary care physician for further evaluation in 5 to 7 days. Patient was advised that he may need physical therapy for this. Patient was instructed to return if severe pain. Patient understands and is agreeable with the plan. All questions were answered. Discharge Plan Triage Chief Complaint: Upper Extremity Injury ED Provider: Bryson Garnica Dx/Rx/DC Orders Clinical Impression: Pain of left shoulder region Instructions: ED Shoulder Pain, Uncertain Cause Prescriptions: New hydrocodone-acetaminophen [hydrocodone-acetaminophen] 1 TABLET tablet 1 tab PO Q6H PRN PRN (Reason: Pain) 3 Days Qty: 10 RF: 0 No Action Entresto 97-103 mg tablet 1 tab PO BID RF: 0 metoprolol succinate 25 mg tablet extended release 24 hr 25 mg PO DAILY RF: 0 apixaban 5 MG tablet 5 mg PO BID RF: 0 metaxalone [Skelaxin] 800 mg tablet 800 mg PO TID 7 Days Qty: 21 RF: 0 (DME) blood sugar diagnostic Strip See Rx Instructions .ROUTE .MEDSUPPLY Qty: 100 RF: 0 (DME) blood-glucose meter Misc See Rx Instructions .ROUTE .MEDSUPPLY Qty: 1 RF: 0 (DME) lancets Misc See Rx Instructions .ROUTE .MEDSUPPLY Qty: 100 RF: 0 Stand Alone Forms: Work Status Form Primary Care Provider: Jagruti Ferrari Referrals: Jagruti Ferrari MD [Primary Care Provider] - 5-7 Days
--- NOTE | 2021-08-13 23:45 | RAD_ITS ---
EXAM: XR Left Shoulder Complete, 2 or More Views CLINICAL INDICATION: 41 years old, Male; Injury/Pain TECHNIQUE: Two or more views of the left shoulder. This report was created using [employer] report generation technology. COMPARISON: None. FINDINGS: Bones/joints: Unremarkable. No acute fracture. No subluxation. Normal alignment. Preservation of the joint space. No sclerotic or destructive changes observed. Soft tissues: Unremarkable. No soft tissue swelling or gas. No radiopaque foreign body. RAD/Shoulder min 2 Views IMPRESSION: Negative left shoulder x-rays. ASSESSMENT: NEGATIVE report - No abnormal findings. Electronically Signed: Parish Salcido MD at 0:04 EDT Tel , Service support ,
== END 2021-08-14 00:27 | disposition home or self-care (01) ==
LOC: ED 08-14 00:21
PROVIDERS: Emergency Provider Emergency Medicine; PCP Internal Medicine
DX: M25.512 Pain in left shoulder (principal); I50.9 Heart failure, unspecified; Z95.810 Presence of automatic (implantable) cardiac defibrillator; Z79.01 Long term (current) use of anticoagulants; Z79.899 Other long term (current) drug therapy
CPT/HCPCS: 73030; 99282

== ENCOUNTER → 2021-08-14 15:04 | Outpatient (CLI) | payer MEDICAID, SELFPAY ==
--- NOTE | 2021-08-14 15:07 | RAD_ITS ---
HISTORY: cervicalgia EXAMINATION/TECHNIQUE: XR Spine Cervical 4 or 5 Views: 5 views COMPARISON: None FINDINGS: VERTEBRAE: Vertebral body heights and alignment are intact. Cervical lordosis is normal. No fracture or focal bone lesion. DISCS: Mild loss of disc space height at C6-7 with osteophytes encroaching minimally on the bilateral foramina. NECK SOFT TISSUES: No prevertebral soft tissue widening. LUNG APICES: Clear. RAD/Cerv Spine 4 or 5 Views IMPRESSION: Mild degenerative and spondylitic changes at C6-7 with bilateral foraminal encroachment by osteophytes. at 1652 Reported and signed by: Abhishek Harmon MD Electronically Signed: Abhishek Harmon MD at 16:51 EDT Tel , Service support ,
== END ==
PROVIDERS: PCP Internal Medicine; Referring Provider Nurse Practitioner Adult Health; Visit Provider Nurse Practitioner Adult Health
DX: M54.2 Cervicalgia (principal)
CPT/HCPCS: 72050

== ENCOUNTER → 2021-09-16 10:49 | Outpatient (CLI) | payer MEDICAID, SELFPAY ==
--- NOTE | 2021-09-16 10:50 | MRI_ITS ---
EXAM: MR CERVICAL SPINE WITHOUT INTRAVENOUS CONTRAST CLINICAL INDICATION: cervical nerve root impingement LEFT SHOULDER PAIN TECHNIQUE: Multiplanar and multisequence MR images of the cervical spine without intravenous contrast were performed. This report was created using [employer] report generation technology. COMPARISON: xr 08.14.21 FINDINGS: VERTEBRAE: Unremarkable. Normal vertebral bodies and posterior elements. Normal alignment. Normal craniocervical junction and cervicothoracic junction. No spondylolisthesis. There is preservation of the normal cervical lordosis. SPINAL CORD: Unremarkable in signal and morphology. SOFT TISSUES: Unremarkable. No prevertebral soft tissue swelling. LYMPH NODES: Unremarkable. There is no cervical adenopathy. DISCS/SPINAL CANAL/NEURAL FORAMINA: C2-C3: Unremarkable. Normal disc height and morphology. Normal spinal canal and neuroforamina. C3-C4: Unremarkable. Normal disc height and morphology. Normal spinal canal and neuroforamina. C4-C5: Unremarkable. Normal disc height and morphology. Normal spinal canal and neuroforamina. C5-C6: Unremarkable. Normal disc height and morphology. Normal spinal canal and neuroforamina. C6-C7: Posterior disc bulge osteophyte complex at C6-7. This is causing bilateral neural foraminal narrowing. No spinal stenosis. C7-T1: Unremarkable. Normal disc height and morphology. Normal spinal canal and neuroforamina. MRI/Spine Cervical (Routine) IMPRESSION: Posterior disc bulge osteophyte complex at C6-7. This is causing bilateral neural foraminal narrowing. No spinal stenosis. Electronically Signed: Sukumar Appiah MD at 16:47 EST , Service support ,
[2021-09-16 11:35] VITALS: BP 94/52; PULSE 59; RESP 16; O2SAT 97
[2021-09-16 11:51] VITALS: BP 89/55; PULSE 68; O2SAT 97
== END ==
PROVIDERS: PCP Internal Medicine; Visit Provider Internal Medicine
DX: G54.2 Cervical root disorders, not elsewhere classified (principal)
CPT/HCPCS: 72141

== ENCOUNTER → 2021-10-20 09:38 | Outpatient (CLI) | payer MEDICAID, SELFPAY ==
--- NOTE | 2021-10-20 09:42 | RAD_ITS ---
STUDY: X-RAY CHEST REASON FOR EXAM: Male, 41 years old. EXTRACTION OF S-ICD/IMPLANTING DUAL CHAMBER ICD TECHNIQUE: PA and lateral views of the chest. COMPARISON: Comparison is made with prior study dated 04/17/2020. FINDINGS: There is hyperinflation of the lungs consistent with chronic obstructive lung disease (COPD). There is no demonstrated pleural abnormality. Normal size heart. A unipolar pacemaker is seen. Normal mediastinum and natanael. There is prominence of the pulmonary hilar arteries without peripheral pulmonary vascular congestion, suggesting pulmonary hypertension. Normal visualized aortic arch and descending thoracic aorta. Normal visualized thoracic spine. Normal visualized ribs, clavicles, and shoulders. There is no demonstrated abnormality of the visualized soft tissue structures of the upper abdomen. RAD/Chest PA and Lateral IMPRESSION: Hyperinflation. No acute abnormality is seen. Electronically Signed: Casey Jiang MD at 11:07 EST , Service support ,
[2021-10-20 12:02] LABS: Hematocrit 42.1 % (40-54); Hemoglobin 13.7 g/dL (13.0-16.5); Mean Corp Hgb Conc 32.5 g/dL (32-36); Mean Corpuscular Hgb 29.3 pg (27.0-32.0); Mean Platelet Vol. 9.9 fl (6.2-12.0); Platelet Count 248 K/mm3 (150-450); RBC Distribution Width CV 12.9 % (11.6-14.6); RBC Distribution Width SD 42.5 fl (35.1-43.9); Red Blood Count 4.68 M/mm3 (4.6-6.2); White Blood Count 5.7 K/mm3 (4.4-11.0)
[2021-10-20 12:20] LABS: Anion Gap 4 (5-15); BUN 13 mg/dL (7-18); BUN/Creat Ratio 12.4 RATIO (10-20); Calcium,Total 8.9 mg/dL (8.5-10.1); Chloride 110 mmol/L (98-107); Creatinine, Serum 1.05 mg/dL (0.70-1.30); EST Glomerular Filtration Rate 83 mL/min (>60); Est Glom Filt Rate - Afr Amer 100 mL/min (>60); Glucose 69 mg/dL (74-106); Potassium 3.9 mmol/L (3.5-5.1); Sodium Level 142 mmol/L (136-145)
== END ==
PROVIDERS: PCP Internal Medicine
DX: Z01.810 Encounter for preprocedural cardiovascular examination (principal); Z95.810 Presence of automatic (implantable) cardiac defibrillator
CPT/HCPCS: 36415; 71046; 80048; 85027

== ENCOUNTER → 2021-12-21 11:15 | Outpatient (CLI) | payer MEDICAID, SELFPAY ==
[2021-12-21 12:10] LABS: Hematocrit 36.3 % (40-54); Hemoglobin 11.9 g/dL (13.0-16.5); Mean Corp Hgb Conc 32.8 g/dL (32-36); Mean Corpuscular Hgb 28.7 pg (27.0-32.0); Mean Corpuscular Volume 87.5 fL (80-94); Mean Platelet Vol. 9.2 fl (6.2-12.0); Platelet Count 500 K/mm3 (150-450); RBC Distribution Width CV 14.1 % (11.6-14.6); RBC Distribution Width SD 45.3 fl (35.1-43.9); Red Blood Count 4.15 M/mm3 (4.6-6.2); White Blood Count 6.9 K/mm3 (4.4-11.0)
[2021-12-21 12:39] LABS: Anion Gap 6 (5-15); BUN 12 mg/dL (7-18); BUN/Creat Ratio 13.5 RATIO (10-20); Calcium,Total 9.5 mg/dL (8.5-10.1); Chloride 105 mmol/L (98-107); Creatinine, Serum 0.89 mg/dL (0.70-1.30); EST Glomerular Filtration Rate 100 mL/min (>60); Est Glom Filt Rate - Afr Amer 121 mL/min (>60); Glucose 88 mg/dL (74-106); Potassium 4.6 mmol/L (3.5-5.1); Sodium Level 137 mmol/L (136-145)
== END ==
PROVIDERS: PCP Internal Medicine
DX: I50.20 Unspecified systolic (congestive) heart failure (principal); I42.8 Other cardiomyopathies; I49.3 Ventricular premature depolarization
CPT/HCPCS: 36415; 80048; 85027

== ENCOUNTER 2021-12-27 18:44 | Emergency (ER) | payer MEDICAID, SELFPAY ==
[2021-12-27 18:44] VITALS: BP 86/54; PULSE 108; RESP 16; TEMP 36; O2SAT 99; BMI 21.1
--- NOTE | 2021-12-27 19:31 | EKG12_ITS ---
Test Reason : DIZZY Blood Pressure : / mmHG Vent. Rate : 095 BPM Atrial Rate : 095 BPM P-R Int : 140 ms QRS Dur : 094 ms QT Int : 350 ms P-R-T Axes : 046 002 261 degrees QTc Int : 439 ms Sinus rhythm with frequent Premature ventricular complexes T wave abnormality, consider inferolateral ischemia Abnormal ECG Confirmed by CLAUDETTE MARTINO, WINDY ([id number]), video tape editor YEISON BARKLEY ([id number]) on 12/30/2021 12:52:26 PM Referred By: JOE Confirmed By:WINDY WILKINS MD
--- NOTE | 2021-12-27 19:36 | EDS_ITS ---
HPI History of Present Illness Chief Complaint: Shortness of Breath Informant: patient Onset/Context/Timing Onset: Weeks Context: Gradual Onset Timing: Waxes and wanes Current Severity: Mild Maximum Severity: Moderate Narrative Narrative: Patient presents with ongoing shortness of breath for the past several weeks. He has a history of congestive heart failure and states he was seen at [facility] a few weeks ago. They told him he had fluid around his defibrillator. He reported called his pediatric cns who was able to review the images and states that he actually had fluid around his lungs. He was not put on a diuretic. He also reports having cough that is worse at night. He denies fever or chills. He is scheduled to see his pediatric cns tomorrow for further work-up. He states he presented tonight because of his shortness of breath with any exertion. [facility] Medical History (Updated 12/27/21 @ 22:[address] Mary Jane Newsome MD) Back problem Cardiac defibrillator in place Head ache Heart failure Implantable cardioverter-defibrillator (ICD) in situ Kawasaki disease Left shoulder pain SOB (shortness of breath) Home Medications metoprolol succinate 25 mg tablet,extended release 24 hr 25 mg PO DAILY 10/29/20 [History Last Taken Unknown] sacubitril 97 mg-valsartan 103 mg tablet 1 tab PO BID 10/29/20 [History Last Taken Unknown] blood sugar diagnostic #100 each 02/02/21 [Rx Last Taken Unknown] blood-glucose meter #1 each 02/02/21 [Rx Last Taken Unknown] lancets #100 each 02/02/21 [Rx Last Taken Unknown] apixaban 5 mg PO BID 02/28/21 [History Last Taken Unknown] dextromethorphan HBr 15 mg tablet 30 mg PO Q8H PRN #30 tab MDD 120mg 12/18/21 [Rx Last Taken Unknown] hydrocodone-acetaminophen 1 tab PO Q6H PRN 3 Days #10 tab 12/27/21 [Rx Last Taken Unknown] levofloxacin 750 mg PO DAILY #4 tab 12/27/21 [Rx Last Taken Unknown] Allergy/AdvReac Type Severity Reaction Status Date / Time morphine AdvReac Other Verified 12/27/21 22:08 Family History Father Heart disease Myocardial infarction Other Adopted Surgical History History of appendectomy Social History Smoking Status: Never smoker alcohol intake: never substance use type: does not use what type of physical activity do you participate in: none ROS ROS ED Constitutional Constitutional ED: Denies chills or fever(s) Eyes Eyes: Denies change in vision ENT ENT ED: Denies sore throat Cardiovascular Cardiovascular: Denies chest pain Respiratory/Chest Respiratory/Chest: Reports cough and dyspnea; Denies sputum Gastrointestinal Gastrointestinal: Denies abdominal pain, nausea or vomiting Genitourinary Genitourinary ED: Denies dysuria Musculoskeletal Musculoskeletal: Denies back pain Integumentary Denies rash Neurologic Neurologic: Denies headache(s) or weakness Allergic/Immunologic Allergic/Immunologic ED: Denies urticaria EXAM Physical Exam Const Vital Signs: 12/27/21 18:44 12/27/21 18:58 12/27/21 21:16 Temperature 96.8 F L Temperature Source Temporal Pulse Rate 108 H 101 H Respiratory Rate 16 26 H Respiratory Effort Normal Non-Labored Respiratory Depth Normal Respiratory Pattern Normal Blood Pressure 86/54 L 100/73 Blood Pressure Mean 64 82 Pulse Ox 99 98 Oxygen Delivery Method Room Air Room Air Room Air Positive well nourished and well developed General Appearance ED: well developed HEENT Reports moist mucous membranes Eyes PERRL and EOMs intact bilaterally Neck supple Chest Wall inspection of chest normal and palpation of chest normal Resp normal respiratory effort and clear to auscultation bilaterally Cardio regular rate and regular rhythm GI non-tender Palpation: soft Neuro oriented x3 Sensorium / Orientation: alert Psych mental status grossly normal Skin no rashes or lesions noted MDM MDM MDM Narrative Medical decision making narrative: Lab work, EKG, chest x-ray obtained. Lab Data Attestation: I reviewed the patient's lab results. Labs: Laboratory Results - last 24 hr 12/27/21 12/27/21 12/27/21 19:35 19:35 19:35 WBC 14.3 H RBC 3.97 L Hgb 10.9 L Hct 34.3 L MCV 86.4 MCH 27.5 MCHC 31.8 L RDW Std Deviation 45.2 H RDW Coeff of Jonathan 14.2 Plt Count 550 H MPV 8.7 Immature Gran % (Auto) 0.600 Neut % (Auto) 82.7 H Lymph % (Auto) 8.7 L [place] % (Auto) 7.6 Eos % (Auto) 0.1 Baso % (Auto) 0.3 Absolute Neuts (auto) 11.8 H Absolute Lymphs (auto) 1.25 Nucleated RBC % 0 Sodium 137 Potassium 4.0 Chloride 105 Carbon Dioxide 26.0 Anion Gap 6 BUN 18 Creatinine 1.01 Estim Creat Clear Calc 99.80 Est GFR (MDRD) Af Amer 105 Est GFR (MDRD) Non-Af 87 BUN/Creatinine Ratio 17.8 Glucose 101 Calcium 8.5 Total Bilirubin 0.60 Direct Bilirubin 0.31 H AST 17 ALT 25 Alkaline Phosphatase 122 H Troponin I High Sens 5 B-Natriuretic Peptide 313.2 H Total Protein 7.2 Albumin 2.6 L Globulin 4.6 H Radiography Chest X-Ray - ED: 1 View and Left Infiltrate Diagnostic Testing: Clinical Impression(s) from Imaging Studies Chest X-Ray 12/27/21 19:46 IMPRESSION: Bilateral pleural effusions, left more than right. Left basilar infiltrate/atelectasis. Borderline size heart. Electronically Signed: Keshawn Mejias DO at 21:15 EST Reading Location ID and State: [facility] / [place] Tel [phone], Service support , EKG Initial EKG: Attestation: I personally reviewed and interpreted this EKG as follows: Interpretation: Sinus Rhythm (Sinus at 95. Occasional PVCs. Lateral T wave inversion noted but unchanged when compared to prior study.) Treatment and Re-Evaluation Comments:: Test results discussed with the patient. Lab work reveals elevated white count at 14.3. I did confirm that he is not currently on steroids. Chemistry studies and LFTs unremarkable. BNP is 313. Troponin is normal at 5. Chest x-ray per my interpretation reveals what appears to be a left basilar infiltrate. Radiology interpretation reports bilateral pleural effusions left greater than right with left basilar infiltrate or atelectasis. With patient having cough, shortness of breath, and elevated white count he will be treated with antibiotics. He is given a dose of [place] here for left shoulder pain as well as Levaquin. Prescriptions will be sent to the pharmacy. He has an appointment with his pediatric cns tomorrow. I did print out his lab work and x- ray result to take with him. Discharge Plan Triage Chief Complaint: Shortness of Breath ED Provider: Mary Jane Newsome Dx/Rx/DC Orders Clinical Impression: Pneumonia Instructions: ED Pneumonia (Adult) Prescriptions: New levofloxacin 750 mg tablet 750 mg PO DAILY Qty: 4 RF: 0 hydrocodone-acetaminophen 5-325 mg tablet 1 tab PO Q6H PRN (Reason: pain) 3 Days Qty: 10 RF: 0 No Action Entresto 97-103 mg tablet 1 tab PO BID RF: 0 metoprolol succinate 25 mg tablet extended release 24 hr 25 mg PO DAILY RF: 0 Hold Instructions: cardiology holding apixaban 5 MG tablet 5 mg PO BID RF: 0 (DME) blood sugar diagnostic Strip See Rx Instructions .ROUTE .MEDSUPPLY Qty: 100 RF: 0 (DME) blood-glucose meter Misc See Rx Instructions .ROUTE .MEDSUPPLY Qty: 1 RF: 0 (DME) lancets Misc See Rx Instructions .ROUTE .MEDSUPPLY Qty: 100 RF: 0 Delsym Cough 15 mg tablet 30 mg PO Q8H MDD 120mg PRN (Reason: cough) Qty: 30 RF: 1 Primary Care Provider: Jagruti Ferrari Referrals: Jagruti Ferrari MD [Primary Care Provider] - 1-2 Weeks Activity Restrictions/Additional Instructions: Follow-up with your pediatric cns tomorrow as scheduled. Disposition Disposition: Home, Self Care
--- NOTE | 2021-12-27 19:46 | RAD_ITS ---
STUDY: X-RAY CHEST REASON FOR EXAM: Male, 41 years old. sob TECHNIQUE: Frontal view COMPARISON: 10/20/2021 FINDINGS: There is a left-sided pacemaker. The lungs are expanded. Bilateral pleural effusions, left more than right. Left basilar infiltrate/atelectasis. Borderline size heart. Normal mediastinum and natanael. Normal visualized pulmonary arteries. Normal visualized aortic arch and descending thoracic aorta. Mild scoliosis at the thoracic spine. Normal visualized ribs, clavicles, and shoulders. There is no demonstrated abnormality of the visualized soft tissue structures of the upper abdomen. RAD/Chest 1 View (Portable) IMPRESSION: Bilateral pleural effusions, left more than right. Left basilar infiltrate/atelectasis. Borderline size heart. Electronically Signed: Keshawn Mejias DO at 21:15 [facility] ,
[2021-12-27 19:58] LABS: Absolute Lymphocyte Count 1.25 X10^3/uL (0.83-4.51); Absolute Neutrophil Count 11.8 X10^3/uL (2.0-7.7); Basophil# 0.04 X10^3/uL; Basophil% 0.3 % (0-1); Eosinophil# 0.02 X10^3/uL; Eosinophils% 0.1 % (0-5); Hematocrit 34.3 % (40-54); Hemoglobin 10.9 g/dL (13.0-16.5); Lymphocyte # 1.25 X10^3/ul (0.83-4.51); Lymphocyte % 8.7 % (19-41); Mean Corp Hgb Conc 31.8 g/dL (32-36); Mean Corpuscular Hgb 27.5 pg (27.0-32.0); Mean Corpuscular Volume 86.4 fL (80-94); Mean Platelet Vol. 8.7 fl (6.2-12.0); Monocyte# 1.08 X10^3/uL; Monocyte% 7.6 % (0-10); NRBC Flagged by Analyzer 0 % (0-5); Neutrophil # 11.83 X10^3/uL (2.7-7.7); Neutrophil % 82.7 % (47-70); Platelet Count 550 K/mm3 (150-450); RBC Distribution Width CV 14.2 % (11.6-14.6); RBC Distribution Width SD 45.2 fl (35.1-43.9); Red Blood Count 3.97 M/mm3 (4.6-6.2); White Blood Count 14.3 K/mm3 (4.4-11.0)
[2021-12-27 20:17] LABS: AST(SGOT) 17 U/L (15-37); Alanine Aminotransfer ALT/SGPT 25 U/L (16-61); Albumin, Serum 2.6 g/dL (3.2-5.0); Alkaline Phosphatase 122 U/L (45-117); Anion Gap 6 (5-15); BUN 18 mg/dL (7-18); BUN/Creat Ratio 17.8 RATIO (10-20); Bilirubin, Direct 0.31 mg/dL (0.00-0.30); Calcium,Total 8.5 mg/dL (8.5-10.1); Chloride 105 mmol/L (98-107); Creatinine, Serum 1.01 mg/dL (0.70-1.30); EST Glomerular Filtration Rate 87 mL/min (>60); Est Glom Filt Rate - Afr Amer 105 mL/min (>60); Globulin 4.6 g/dL (2.2-4.2); Glucose 101 mg/dL (74-106); Protein, Total 7.2 g/dL (6.4-8.2); Sodium Level 137 mmol/L (136-145); Troponin-I HS 5 pg/mL (3.0-78.0)
[2021-12-27 20:22] LABS: BNP,B-Type NATRIURETIC PEPTIDE 313.2 pg/mL (0-100)
[2021-12-27 21:16] VITALS: BP 100/73; PULSE 101; RESP 26; O2SAT 98
[2021-12-27] MEDS: levoFLOXacin 750 MG Tablet PO (22:09)
[2021-12-27] MEDS: HYDROcodone Bitartrate/Apap 5/325 Tablet PO (22:15)
[2021-12-27 23:00] VITALS: BP 112/80; PULSE 100; RESP 18; O2SAT 100
== END 2021-12-27 23:07 | disposition home or self-care (01) ==
PROVIDERS: Emergency Provider Emergency Medicine; PCP Internal Medicine; Visit Provider Emergency Medicine
DX: J18.9 Pneumonia, unspecified organism (principal); I50.9 Heart failure, unspecified; Z95.810 Presence of automatic (implantable) cardiac defibrillator; Z79.899 Other long term (current) drug therapy; I49.3 Ventricular premature depolarization
CPT/HCPCS: J2405; 71045; 80048; 80076; 83880; 84484; 85025; 93005; 99284; A4216

== ENCOUNTER → 2022-03-15 | Outpatient (CLI) | payer MEDICAID, SELFPAY ==
[2022-03-15 14:05] LABS: Absolute Lymphocyte Count 1.28 X10^3/uL (0.83-4.51); Absolute Neutrophil Count 8.5 X10^3/uL (2.0-7.7); Basophil# 0.05 X10^3/uL; Basophil% 0.4 % (0-1); Eosinophil# 0.07 X10^3/uL; Eosinophils% 0.6 % (0-5); Hematocrit 44.6 % (40-54); Hemoglobin 14.4 g/dL (13.0-16.5); Lymphocyte # 1.28 X10^3/ul (0.83-4.51); Lymphocyte % 11.4 % (19-41); Mean Corp Hgb Conc 32.3 g/dL (32-36); Mean Corpuscular Volume 86.8 fL (80-94); Monocyte# 1.18 X10^3/uL; Monocyte% 10.6 % (0-10); NRBC Flagged by Analyzer 0 % (0-5); Neutrophil # 8.54 X10^3/uL (2.7-7.7); Neutrophil % 76.5 % (47-70); Platelet Count 268 K/mm3 (150-450); RBC Distribution Width CV 14.8 % (11.6-14.6); RBC Distribution Width SD 47.2 fl (35.1-43.9); Red Blood Count 5.14 M/mm3 (4.6-6.2); White Blood Count 11.2 K/mm3 (4.4-11.0)
--- NOTE | 2022-03-15 14:05 | RAD_ITS ---
STUDY: X-RAY CHEST REASON FOR EXAM: Male, 41 years old. Chest pain TECHNIQUE: PA and lateral views of the chest. COMPARISON: Comparison is made with prior study dated 12/27/2021. FINDINGS: There is hyperinflation of the lungs consistent with chronic obstructive lung disease (COPD). The previously seen left lower lobe infiltrate is cleared. Blunting of the posterior left costophrenic angle. Normal size heart. A left-sided dual-chamber pacemaker is seen. Normal mediastinum and natanael. Normal visualized pulmonary arteries. Normal visualized aortic arch and descending thoracic aorta. Normal visualized thoracic spine. Normal visualized ribs, clavicles, and shoulders. There is no demonstrated abnormality of the visualized soft tissue structures of the upper abdomen. RAD/Chest PA and Lateral IMPRESSION: Hyperinflation. The lungs are clear. Persistent blunting of the left posterior costophrenic angle. Electronically Signed: Casey Jiang MD at 14:29 EDT ,
[2022-03-15 14:22] LABS: Troponin-I HS 6 pg/mL (3.0-78.0)
[2022-03-15 14:25] LABS: BNP,B-Type NATRIURETIC PEPTIDE 49.8 pg/mL (0-100)
[2022-03-15 14:31] LABS: ALB/GLOB Ratio 0.9 RATIO (0.9-2.4); AST(SGOT) 18 U/L (15-37); Alanine Aminotransfer ALT/SGPT 27 U/L (16-61); Albumin, Serum 3.6 g/dL (3.2-5.0); Alkaline Phosphatase 66 U/L (45-117); Amylase 58 U/L (25-115); Anion Gap 4 (5-15); BUN 13 mg/dL (7-18); BUN/Creat Ratio 13.1 RATIO (10-20); Chloride 108 mmol/L (98-107); Creatinine, Serum 0.99 mg/dL (0.70-1.30); EST Glomerular Filtration Rate 89 mL/min (>60); Est Glom Filt Rate - Afr Amer 107 mL/min (>60); Glucose 90 mg/dL (74-106); Lipase 134 U/L (73-393); Protein, Total 7.6 g/dL (6.4-8.2); Sodium Level 140 mmol/L (136-145)
== END | disposition home or self-care (01) ==
PROVIDERS: PCP Internal Medicine; Referring Provider Physician Assistant; Visit Provider Physician Assistant
DX: R07.9 Chest pain, unspecified (principal)
CPT/HCPCS: 36415; 71046; 80053; 82150; 83690; 83880; 84484; 85025

== ENCOUNTER 2022-03-16 21:26 | Emergency (ER) | payer MEDICAID, SELFPAY ==
[2022-03-16 21:27] VITALS: BP 100/73; PULSE 105; RESP 16; TEMP 37.9; O2SAT 97; BMI 23.7
--- NOTE | 2022-03-16 21:44 | EKG12_ITS ---
Test Reason : CP Blood Pressure : / mmHG Vent. Rate : 089 BPM Atrial Rate : 089 BPM P-R Int : 150 ms QRS Dur : 104 ms QT Int : 362 ms P-R-T Axes : 051 009 002 degrees QTc Int : 440 ms Sinus rhythm with sinus arrhythmia with frequent Premature ventricular complexes T wave abnormality, consider lateral ischemia Abnormal ECG Confirmed by ANTONIA MARTINO, JENNIFER ([id number]), photography editor YEISON BARKLEY ([id number]) on 03/17/2022 12:54:09 PM Referred By: DIANA Confirmed By:JENNIFER KNIGHT MD
[2022-03-16 21:47] VITALS: BP 93/61; PULSE 89; RESP 26; O2SAT 98; O2SAT 99
[2022-03-16 21:49] VITALS: O2SAT 98
[2022-03-16 22:00] LABS: Absolute Lymphocyte Count 1.45 X10^3/uL (0.83-4.51); Absolute Neutrophil Count 8.3 X10^3/uL (2.0-7.7); Basophil# 0.05 X10^3/uL; Basophil% 0.5 % (0-1); Eosinophil# 0.04 X10^3/uL; Eosinophils% 0.4 % (0-5); Hematocrit 41.1 % (40-54); Hemoglobin 13.8 g/dL (13.0-16.5); Lymphocyte # 1.45 X10^3/ul (0.83-4.51); Lymphocyte % 13.6 % (19-41); Mean Corp Hgb Conc 33.6 g/dL (32-36); Mean Corpuscular Hgb 28.3 pg (27.0-32.0); Mean Corpuscular Volume 84.2 fL (80-94); Mean Platelet Vol. 9.4 fl (6.2-12.0); Monocyte% 7.5 % (0-10); NRBC Flagged by Analyzer 0 % (0-5); Neutrophil # 8.28 X10^3/uL (2.7-7.7); Neutrophil % 77.6 % (47-70); Platelet Count 287 K/mm3 (150-450); RBC Distribution Width CV 14.7 % (11.6-14.6); RBC Distribution Width SD 44.9 fl (35.1-43.9); Red Blood Count 4.88 M/mm3 (4.6-6.2); White Blood Count 10.7 K/mm3 (4.4-11.0)
[2022-03-16 22:19] LABS: Anion Gap 6 (5-15); BUN 10 mg/dL (7-18); BUN/Creat Ratio 9.4 RATIO (10-20); Calcium,Total 8.8 mg/dL (8.5-10.1); Chloride 108 mmol/L (98-107); Creatinine, Serum 1.06 mg/dL (0.70-1.30); EST Glomerular Filtration Rate 82 mL/min (>60); Est Glom Filt Rate - Afr Amer 99 mL/min (>60); Estimated Creatinine Clearance 104.69 ml/min; Glucose 134 mg/dL (74-106); Potassium 3.6 mmol/L (3.5-5.1); Sodium Level 139 mmol/L (136-145); Troponin-I HS 13 pg/mL (3.0-78.0)
--- NOTE | 2022-03-16 22:21 | EDS_ITS ---
HPI History of Present Illness Chief Complaint: Chest Other Informant: patient Onset/Context/Timing Onset: Days Activity at onset: gradual Timing: Continuous Quality: Positive for Sharp Location: Substernal Worsened By: Breathing Relieved By: Nothing Associated Symptoms: Positive for Cough and Palpitations; Negative for Nausea, Vomiting, Diaphoresis, Dyspnea, Fever, Lightheadedness and Acid Reflux Narrative Narrative: Patient presents with pain that has been getting worse over the past several days. Patient states it feels similar to prior episode of pneumonia. Patient does admit to a cough but denies any fevers. Patient denies any sputum production. Patient denies any shortness of breath. Patient states his pain is sharp and is over the substernal area. Patient states it has been constant. Patient states it is worse with deep breathing. Patient states nothing seems to help with the pain. Patient also admits to some palpitations. Patient denies any lightheadedness. Patient denies any nausea or vomiting. Patient denies any diaphoresis. CVD Risk Factors: Positive for Family History 1' </=55; Negative for Hypertension, Diabetes, Hypercholesterolemia and Smoking PE Risk Factors: Negative for Recent Travel/Surgery, Recent Immobilization, Prior DVT or PE, Cancer and OCP + Smoking + >/=35 PFSH PFSH Medical History Back problem Cardiac defibrillator in place Head ache Heart failure Implantable cardioverter-defibrillator (ICD) in situ Kawasaki disease Left shoulder pain SOB (shortness of breath) Home Medications metoprolol succinate 25 mg tablet,extended release 24 hr 25 mg PO DAILY 10/29/20 [History Last Taken Unknown] sacubitril 97 mg-valsartan 103 mg tablet 1 tab PO BID 10/29/20 [History Last Taken Unknown] blood sugar diagnostic #100 each 02/02/21 [Rx Last Taken Unknown] blood-glucose meter #1 each 02/02/21 [Rx Last Taken Unknown] lancets #100 each 02/02/21 [Rx Last Taken Unknown] apixaban 5 mg PO BID 02/28/21 [History Last Taken Unknown] Allergy/AdvReac Type Severity Reaction Status Date / Time morphine AdvReac Other Verified 03/16/22 21:30 Family History Father Heart disease Myocardial infarction Other Adopted Surgical History History of appendectomy Social History Smoking Status: Never smoker alcohol intake: never substance use type: does not use what type of physical activity do you participate in: none ROS ROS ED Constitutional Constitutional ED: Denies chills or fever(s) Eyes Eyes: Denies blurry vision or change in vision ENT ENT ED: Denies rhinorrhea or sore throat Cardiovascular Cardiovascular: Reports chest pain and palpitations Respiratory/Chest Respiratory/Chest: Reports cough; Denies dyspnea Gastrointestinal Gastrointestinal: Denies abdominal pain, nausea or vomiting Genitourinary Genitourinary ED: Denies dysuria or hematuria Musculoskeletal Musculoskeletal: Denies back pain or neck pain Integumentary Denies abscess or rash Neurologic Neurologic: Denies headache(s) or weakness Allergic/Immunologic Allergic/Immunologic ED: Denies mouth swelling or urticaria EXAM Physical Exam Const Vital Signs: 03/16/22 21:27 03/16/22 21:47 03/16/22 21:49 Temperature 100.3 F H Temperature Source Temporal Pulse Rate 105 H 89 Respiratory Rate 16 26 H Respiratory Effort Short of Breath Respiratory Depth Normal Respiratory Pattern Tachypnea Blood Pressure 100/73 93/61 Blood Pressure Mean 82 71 Pulse Ox 97 98 Oxygen Delivery Method Room Air Room Air Room Air 03/16/22 22:35 03/16/22 23:01 Temperature Temperature Source Pulse Rate 98 85 Respiratory Rate 18 23 H Respiratory Effort Respiratory Depth Respiratory Pattern Blood Pressure 99/66 103/75 Blood Pressure Mean 77 84 Pulse Ox 97 99 Oxygen Delivery Method Room Air Room Air Positive well nourished and well developed General Appearance ED: well developed and NAD HEENT normocephalic and atraumatic Eyes PERRL and EOMs intact bilaterally Neck supple and no JVD Resp normal respiratory effort and clear to auscultation bilaterally Effort and Inspection: Negative for respiratory distress Cardio regular rate, regular rhythm and no murmurs GI normal to inspection, nondistended, normoactive bowel sounds, soft to palpation, non-tender and non-distended Extremity normal to inspection General Extremety ED: Negative for edema or tenderness General Extremity: Negative for edema Neuro oriented x3, CN's II-XII intact bilaterally and no sensory deficits noted Sensorium / Orientation: awake and alert Motor Exam: strength 5/5 throughout Psych mental status grossly normal Heart Score History: Slightly/Non-Suspicious ECG: Nonspecific Repolarization Age: </= 45 years Risk Factors: >/= 3 Risk Factors or History of CAD Troponin: </= Normal Limit Score: 3 MDM MDM MDM Narrative Medical decision making narrative: EKG was obtained. On my interpretation it shows a normal sinus rhythm with a rate of 89 with frequent PVCs. There is some T wave inversion in the inferior and lateral leads. This is unchanged compared to previous EKG dated 12/27/2021. ID interval, QRS interval, and QTc intervals were all normal. [place] was normal. CBC was within normal limits. Basic metabolic profile was essentially within normal limits. High-sensitivity troponin was normal at 13. Patient had similar labs done yesterday and her high-sensitivity troponin yesterday was 5. Portable 1 view chest x-ray was obtained. On my interpretation, lung maldonado are clear. There is normal cardiac silhouette. Bony thorax is normal. There is no acute process noted. Radiologist also interpreted the x-ray and agrees. Patient has a HEART score of 3. Patient was advised that this is low risk for acute cardiac event. Patient was advised that he does not appear to have pneumonia at this time. I do not feel he needs antibiotic therapy at this time. Patient was advised that this could be a viral bronchitis that is causing his cough and chest pain. Patient was instructed to follow-up with his primary care physician in 5 to 7 days. Patient understood and was agreeable with the plan. All questions were answered. Lab Data Attestation: I reviewed the patient's lab results. Labs: Laboratory Results - last 24 hr 03/16/22 03/16/22 21:45 21:45 WBC 10.7 RBC 4.88 Hgb 13.8 Hct 41.1 MCV 84.2 MCH 28.3 MCHC 33.6 RDW Std Deviation 44.9 H RDW Coeff of Jonathan 14.7 H Plt Count 287 MPV 9.4 Immature Gran % (Auto) 0.400 Neut % (Auto) 77.6 H Lymph % (Auto) 13.6 L [place] % (Auto) 7.5 Eos % (Auto) 0.4 Baso % (Auto) 0.5 Absolute Neuts (auto) 8.3 H Absolute Lymphs (auto) 1.45 Nucleated RBC % 0 Sodium 139 Potassium 3.6 Chloride 108 H Carbon Dioxide 25.0 Anion Gap 6 BUN 10 Creatinine 1.06 Estim Creat Clear Calc 104.69 Est GFR (MDRD) Af Amer 99 Est GFR (MDRD) Non-Af 82 BUN/Creatinine Ratio 9.4 L Glucose 134 H Calcium 8.8 Troponin I High Sens 13 Radiography Chest X-Ray - ED: 1 View, Read by ED Physician, Read by Radiologist and No Acute Disease Diagnostic Testing: Clinical Impression(s) from Imaging Studies Chest X-Ray 03/16/22 22:30 IMPRESSION: Stable, nonacute portable x-ray examination of the chest. Electronically Signed: Tapan Piedra MD ([place]) at 22:53 EDT Reading Location ID and State: [facility] / [place] , Service support , EKG Initial EKG: Attestation: I personally reviewed and interpreted this EKG as follows: Interpretation: Sinus Rhythm (89 with frequent PVCs) and Non-Specific ST Changes Prior EKG tracings: available for review Prior: Unchanged (12/27/2021) Discharge Plan Triage Chief Complaint: Chest Other Other Complaint: Shortness of Breath ED Provider: Bryson Garnica Dx/Rx/DC Orders Clinical Impression: Chest pain of uncertain etiology, Cough Instructions: ED Chest Pain, Uncertain Cause Prescriptions: No Action Entresto 97-103 mg tablet 1 tab PO BID RF: 0 metoprolol succinate 25 mg tablet extended release 24 hr 25 mg PO DAILY RF: 0 Hold Instructions: cardiology holding apixaban 5 MG tablet 5 mg PO BID RF: 0 (DME) blood sugar diagnostic Strip See Rx Instructions .ROUTE .MEDSUPPLY Qty: 100 RF: 0 (DME) blood-glucose meter Misc See Rx Instructions .ROUTE .MEDSUPPLY Qty: 1 RF: 0 (DME) lancets Misc See Rx Instructions .ROUTE .MEDSUPPLY Qty: 100 RF: 0 Primary Care Provider: Jagruti Ferrari Referrals: Jagruti Ferrari MD [Primary Care Provider] - 5-7 Days Disposition Disposition: Home, Self Care
--- NOTE | 2022-03-16 22:30 | RAD_ITS ---
STUDY: X-RAY CHEST REASON FOR EXAM: Male, 41 years old. COUGH, SOB, WEAKNESS AND CHEST PAIN X COUPLE OF DAYS. CHEST PAIN WORSE WITH INSPIRATION, HX OF PACEMAKER REPLACEMENT X 2 MONTHS AGO TECHNIQUE: AP COMPARISON: 03/15/2022 FINDINGS: Two lead cardiac conduction device is seen via the left subclavian vein with lead tips projecting over the right atrium and right ventricle, respectively. EKG leads project over the chest. No airspace consolidation. No sizable effusion or pneumothorax. Normal size heart. Normal mediastinum and natanael. Normal visualized pulmonary arteries. Normal visualized aortic arch and descending thoracic aorta. No acute bony process. There is no demonstrated abnormality of the visualized soft tissue structures of the upper abdomen. RAD/Chest 1 View (Portable) IMPRESSION: Stable, nonacute portable x-ray examination of the chest. Electronically Signed: Tapan Piedra MD ([place]) at 22:53 EDT ,
[2022-03-16] MEDS: Aspirin 81 MG TAB.CHEW 324 MG PO (22:34)
[2022-03-16] MEDS: 0.9% Normal Saline 1,000 ML 1000 ML IV (22:34)
[2022-03-16 22:35] VITALS: BP 99/66; PULSE 98; RESP 18; O2SAT 97
[2022-03-16 23:01] VITALS: BP 103/75; PULSE 85; RESP 23; O2SAT 99
[2022-03-16 23:16] VITALS: BP 104/51; PULSE 82; RESP 18; O2SAT 97
== END 2022-03-16 23:38 | disposition home or self-care (01) ==
PROVIDERS: Emergency Provider Emergency Medicine; PCP Internal Medicine; Visit Provider Emergency Medicine
DX: R07.9 Chest pain, unspecified (principal); R05.9 Cough, unspecified; R00.2 Palpitations; Z95.810 Presence of automatic (implantable) cardiac defibrillator; I49.3 Ventricular premature depolarization; Z79.01 Long term (current) use of anticoagulants
CPT/HCPCS: 71045; 80048; 84484; 85025; 93005; 96360; 99285; J7030

== ENCOUNTER → 2022-05-17 | Outpatient (CLI) | payer MEDICAID, SELFPAY ==
[2022-05-17 15:20] LABS: Erythrocyte Sedimentation Rate 17 mm/hr (0-20)
== END | disposition home or self-care (01) ==
LOC: BIMLAB 12:03
PROVIDERS: PCP Internal Medicine
DX: I50.22 Chronic systolic (congestive) heart failure (principal)
CPT/HCPCS: 36415; 85652; 86140

== ENCOUNTER 2022-06-23 18:30 | Outpatient (RCR) | payer MEDICAID, SELFPAY ==
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
--- NOTE | 2022-08-18 13:25 | HP.PT.NRP ---
SHELDON TAAL FAULKNER Sr. was seen in my office for initial evaluation on 06/14/22. The following Plan of Care was established for this patient: Initial Frequency: 2-3x /Week Initial Duration: 4-6 Weeks Patient/Client Instruction: Educate patient on: Condition, Plan of Care, Risk Factors For the Purpose of:: To improve self management Therapeutic Exercise to Include: Strength training, Body mechanics, Postural training, Flexibilty training, Neuromotor development, Active ROM, Scapular Strength/Stabilization For the Purpose of:: To decrease pain, To increase ROM, To improve muscle performance and motor function, To increase tolerance to activity/condition/position, To improve ability of physical actions for home/community/work/leisure Manual Therapy Techniques to Include: Soft tissue mobilization Comment: NECK AND L SHLD For the Purpose of:: To decrease pain, To increase ROM, To improve nutrient delivery to tissue This patient was last seen in our office . Pertinent comments regarding their Physical therapy will appear below: This patient has not returned to Physical Therapy and is appropriate to return to MD for further follow-up as needed. At this point I will be discontinuing this patient from physical therapy. I would be happy to see this patient again in the future if found appropriate by the physician. Thank you! Dhara Gallardo, PT, Cert MDT Balance/Gait/Functional tests - Balance/Special Test Scores Oswestry Neck Score: 30
== END 2022-06-23 19:00 | disposition home or self-care (01) ==
LOC: PT 18:30
PROVIDERS: PCP Internal Medicine; Referring Provider Chiropractor; Visit Provider Chiropractor
DX: M54.12 Radiculopathy, cervical region (principal)
CPT/HCPCS: 97110; 97162

== ENCOUNTER → 2022-12-23 | Outpatient (CLI) | payer MEDICARE, MEDICAID, SELFPAY ==
[2022-12-23 12:35] LABS: Cholesterol 150 mg/dL (200); High Density Lipoprotein 56 mg/dL; Triglycerides 83 mg/dL; Very Low Density Lipoprotein 17 mg/dL (5-40)
== END | disposition home or self-care (01) ==
LOC: BIMLAB 10:54
PROVIDERS: PCP Internal Medicine
DX: I50.22 Chronic systolic (congestive) heart failure (principal)
CPT/HCPCS: 36415; 80061

== ENCOUNTER 2023-04-15 18:03 | Emergency (ER) | payer MEDICARE, MEDICAID, SELFPAY ==
[2023-04-15 18:04] VITALS: BP 100/74; PULSE 61; RESP 18; TEMP 36.7; O2SAT 99; BMI 26.2
--- NOTE | 2023-04-15 18:39 | EDS_ITS ---
HPI History of Present Illness Chief Complaint: Other, Pain/Inj Informant: patient Onset/Context/Timing Onset: Days (2-3) Context: Sudden Onset Timing: Continuous Quality: Sharp Location: Left side of neck and left posterior shoulder Worsened by: Movement, lifting Relieved by: Nothing Narrative Narrative: Patient presents with left-sided neck and upper back pain that has been getting worse over the past 2 to 3 days. Patient states it came on rather suddenly. Patient denies any trauma or injury however. Patient describes the pain as sharp. Patient states the pain is of the left side of his neck and posterior shoulder area. Patient states it is worse with lifting and certain movements. Patient states nothing seems to help with it. Patient denies any paresthesias or weakness. [facility] Medical History Back problem Cardiac defibrillator in place Head ache Heart failure Implantable cardioverter-defibrillator (ICD) in situ Kawasaki disease Left shoulder pain SOB (shortness of breath) Home Medications metoprolol succinate 25 mg tablet,extended release 24 hr 25 mg PO DAILY 10/29/20 [History Last Taken Unknown] sacubitril 97 mg-valsartan 103 mg tablet (Entresto) 1 tab PO BID 10/29/20 [History Last Taken Unknown] blood sugar diagnostic #100 ea 02/02/21 [Rx Last Taken Unknown] blood-glucose meter #1 ea 02/02/21 [Rx Last Taken Unknown] lancets #100 ea 02/02/21 [Rx Last Taken Unknown] apixaban 5 mg tablet 5 mg PO BID 02/28/21 [History Last Taken Unknown] omeprazole 20 mg capsule,delayed release 20 mg PO DAILY #60 caps 03/17/22 [Rx Last Taken Unknown] rimegepant 75 mg disintegrating tablet (Nurtec ODT) 75 mg PO 06/08/22 [History Last Taken Unknown] handicap placard #1 ea 07/28/22 [Rx Last Taken Unknown] Allergy/AdvReac Type Severity Reaction Status Date / Time ketorolac [From Toradol] AdvReac Upset Verified 04/15/23 18:23 Stomach morphine AdvReac Other Verified 04/15/23 18:23 Family History Father Heart disease Myocardial infarction Other Adopted Surgical History History of appendectomy Social History Smoking Status: Never smoker alcohol intake: never substance use type: does not use what type of physical activity do you participate in: none ROS ROS ED Constitutional Constitutional ED: Denies chills or fever(s) Eyes Eyes: Denies blurry vision or change in vision ENT ENT ED: Denies rhinorrhea or sore throat Cardiovascular Cardiovascular: Denies chest pain or palpitations Respiratory/Chest Respiratory/Chest: Denies cough or dyspnea Gastrointestinal Gastrointestinal: Denies nausea or vomiting Genitourinary Genitourinary ED: Denies dysuria or hematuria Musculoskeletal Musculoskeletal: Reports neck pain; Denies back pain Integumentary Denies abscess or rash Neurologic Neurologic: Denies headache(s) or weakness Allergic/Immunologic Allergic/Immunologic ED: Denies mouth swelling or urticaria EXAM Physical Exam Const Vital Signs: 04/15/23 18:04 04/15/23 18:23 Temperature 98.1 F Temperature Source Temporal Pulse Rate 61 Respiratory Rate 18 Respiratory Effort Normal Non-Labored Respiratory Pattern Normal Blood Pressure 100/74 Blood Pressure Mean 82 Pulse Ox 99 Oxygen Delivery Method Room Air Positive well nourished and well developed General Appearance ED: well developed and NAD Neck supple and no JVD Back/Spine Back/Spine Narrative: There is also mild tenderness over the left lower cervical paraspinal muscles. There is no midline tenderness. There is no bony crepitance or step-off. Range of motion of the cervical spine was slightly limited in left rotation and left sidebending secondary to pain. Thoracic Spine / Upper Back: paraspinal muscle tenderness left T1, T2, T3, T4, T5, T6 and T7 Neuro oriented x3, CN's II-XII intact bilaterally and no sensory deficits noted Sensorium / Orientation: alert Motor Exam: strength 5/5 throughout Psych mental status grossly normal Skin no rashes or lesions noted MDM MDM MDM Narrative Medical decision making narrative: Patient was advised that this is most likely a muscular strain. Patient was given a prescription for a short course of Valium. Patient was given restrictions for work. Patient was instructed to use ice to the area. Patient was instructed to follow-up with his primary care physician in 5 to 7 days. Patient understood and was agreeable with the plan. All questions were answered. Discharge Plan Triage Chief Complaint: Other, Pain/Inj ED Provider: Bryson Garnica Dx/Rx/DC Orders Clinical Impression: Acute thoracic myofascial strain, Acute cervical myofascial strain Prescriptions: No Action Entresto 97-103 mg tablet 1 tab PO BID metoprolol succinate 25 mg tablet extended release 24 hr 25 mg PO DAILY Hold Instructions: cardiology holding Nurtec ODT 75 mg tablet,disintegrating 75 mg PO apixaban 5 MG tablet 5 mg PO BID (DME) blood sugar diagnostic Strip See Rx Instructions .ROUTE .MEDSUPPLY Qty: 100 0RF Rx Instructions: Test strips - test daily for hypoglycemia as needed (DME) blood-glucose meter Misc See Rx Instructions .ROUTE .MEDSUPPLY Qty: 1 0RF Rx Instructions: test daily for hypoglycemia as needed (DME) lancets Misc See Rx Instructions .ROUTE .MEDSUPPLY Qty: 100 0RF Rx Instructions: test daily for hypoglycemia as needed omeprazole 20 mg capsule,delayed release(DR/EC) 20 mg PO DAILY Qty: 60 0RF (DME) handicap placard See Rx Instructions .Route .MEDSUPPLY Qty: 1 0RF Rx Instructions: 5 year rx 07/28/22 - 07/28/27 Stand Alone Forms: Work Status Form Primary Care Provider: Jagruti Ferrari Referrals: Jagruti Ferrari MD [Primary Care Provider] - 5-7 Days Disposition Disposition: Home, Self Care
[2023-04-15 18:48] VITALS: RESP 16
== END 2023-04-15 19:05 | disposition home or self-care (01) ==
LOC: ED 19:01
PROVIDERS: Emergency Provider Emergency Medicine; PCP Internal Medicine; Visit Provider Emergency Medicine
DX: S16.1XXA Strain of muscle, fascia and tendon at neck level, initial encounter (principal); I50.9 Heart failure, unspecified; S29.019A Strain of muscle and tendon of unspecified wall of thorax, initial encounter; Z79.01 Long term (current) use of anticoagulants; Z95.810 Presence of automatic (implantable) cardiac defibrillator; Z90.49 Acquired absence of other specified parts of digestive tract
CPT/HCPCS: 99283

== ENCOUNTER → 2023-07-19 | Outpatient (CLI) | payer MEDICARE, MEDICAID, SELFPAY ==
[2023-07-19 12:29] LABS: BNP,B-Type NATRIURETIC PEPTIDE 23.3 pg/mL (0-100)
[2023-07-19 12:48] LABS: Anion Gap 6 (5-15); BUN 17 mg/dL (7-18); BUN/Creat Ratio 16.7 RATIO (10-20); Calcium,Total 8.9 mg/dL (8.5-10.1); Chloride 110 mmol/L (98-107); Cholesterol 123 mg/dL (200); Creatinine, Serum 1.02 mg/dL (0.70-1.30); EST Glomerular Filtration Rate 85 mL/min (>60); Est Glom Filt Rate - Afr Amer 103 mL/min (>60); Glucose 88 mg/dL (74-106); High Density Lipoprotein 47 mg/dL; Potassium 4.1 mmol/L (3.5-5.1); Sodium Level 138 mmol/L (136-145); Triglycerides 97 mg/dL; Very Low Density Lipoprotein 19 mg/dL (5-40)
== END | disposition home or self-care (01) ==
LOC: BIMLAB 09:59
PROVIDERS: PCP Internal Medicine
DX: R06.02 Shortness of breath (principal); I50.22 Chronic systolic (congestive) heart failure
CPT/HCPCS: 36415; 80048; 80061; 83880

== ENCOUNTER 2023-12-08 12:42 | Emergency (ER) | payer MEDICARE, MEDICAID, SELFPAY ==
[2023-12-08 12:43] VITALS: BP 101/69; PULSE 70; RESP 18; TEMP 36.6; O2SAT 99; BMI 26.8
--- NOTE | 2023-12-08 13:27 | EDS_ITS ---
HPI History of Present Illness Chief Complaint: Lower Extremity Injury Narrative Narrative: 43-year-old male presenting with right knee pain. This is nontraumatic. It has been hurting him for a month. He points to the medial aspect of the right knee. He states it is worse with climbing stairs and descending stairs. He states that at times it does pop and click when he ambulates. No numbness or tingling. No swelling or bruising. [facility] Medical History Back problem Cardiac defibrillator in place Head ache Heart failure Implantable cardioverter-defibrillator (ICD) in situ Kawasaki disease Left shoulder pain SOB (shortness of breath) Home Medications metoprolol succinate 25 mg tablet,extended release 24 hr 25 mg PO DAILY 10/29/20 [History Last Taken Unknown] sacubitril 97 mg-valsartan 103 mg tablet (Entresto) 1 tab PO BID 10/29/20 [History Last Taken Unknown] blood sugar diagnostic #100 ea 02/02/21 [Rx Last Taken Unknown] blood-glucose meter #1 ea 02/02/21 [Rx Last Taken Unknown] lancets #100 ea 02/02/21 [Rx Last Taken Unknown] apixaban 5 mg tablet 5 mg PO BID 02/28/21 [History Last Taken Unknown] omeprazole 20 mg capsule,delayed release 20 mg PO DAILY #60 caps 03/17/22 [Rx Last Taken Unknown] rimegepant 75 mg disintegrating tablet (Nurtec ODT) 75 mg PO 06/08/22 [History Last Taken Unknown] handicap placard #1 ea 07/28/22 [Rx Last Taken Unknown] Allergy/AdvReac Type Severity Reaction Status Date / Time ketorolac [From Toradol] AdvReac Upset Verified 12/08/23 12:42 Stomach morphine AdvReac Other Verified 12/08/23 12:42 Family History Father Heart disease Myocardial infarction Other Adopted Surgical History History of appendectomy Social History Smoking Status: Never smoker alcohol intake: never substance use type: does not use what type of physical activity do you participate in: none ROS ROS ED Constitutional Constitutional ED: Denies chills, fever(s) or sweats Eyes Eyes: Denies blurry vision or change in vision ENT ENT ED: Denies ear pain or sore throat Cardiovascular Cardiovascular: Denies chest pain, palpitations or racing heartbeat Respiratory/Chest Respiratory/Chest: Denies cough, dyspnea or sputum Gastrointestinal Gastrointestinal: Denies abdominal pain, constipation, diarrhea, nausea or vomiting Genitourinary Genitourinary ED: Denies dysuria, hematuria or urinary frequency Musculoskeletal Musculoskeletal: Reports other Details: Right knee pain ; Denies arthralgias, myalgias or neck pain Integumentary Denies abscess, Abrasions or rash Neurologic Neurologic: Denies headache(s), paresthesias or weakness Psychiatric Psychiatric: Denies anxiety, depression, suicidal ideation or suicidal thoughts Endocrine Endocrinology: Denies polydipsia or polyuria EXAM Physical Exam Const Vital Signs: 12/08/23 12:43 Temperature 97.8 F Temperature Source Temporal Pulse Rate 70 Respiratory Rate 18 Blood Pressure 101/69 Blood Pressure Mean 79 Pulse Ox 99 Oxygen Delivery Method Room Air Positive well nourished General Appearance ED: NAD HEENT Reports moist mucous membranes normocephalic Chest Wall inspection of chest normal Resp normal respiratory effort and no retractions Auscultation: Negative for rales, rhonchi or wheezes Cardio regular rate and regular rhythm Extremity Extremity Narrative: Tenderness palpation to the medial joint line of the right knee. No edema, bruising. No patellar tenderness. There is pain with valgus strain. There is no pain with varus strain. No ligament laxity. Neuro oriented x3 and CN's II-XII intact bilaterally Psych mental status grossly normal Skin Lesions: no lesions Rashes: no rashes MDM MDM MDM Narrative Medical decision making narrative: 43-year-old male presenting with right knee pain. I suspect he likely has a meniscal tear based on history. On exam he is pain with valgus strain. I will obtain a right knee x-ray and the patient Naprosyn. X-ray of the right knee on my interpretation of 4 views show no acute fracture or subluxation. Patient counseled on findings. He will be given orthopedic follow-up. He is counseled to use NSAIDs and Tylenol. Ice, rest, elevation. Discharged stable addition. Impression: 1. Right knee strain Radiography Diagnostic Testing: Clinical Impression(s) from Imaging Studies Knee X-Ray 12/08/23 13:35 IMPRESSION: Normal x-ray examination of the knee. Electronically Signed: Casey Jiang MD at 13:49 EST , Discharge Plan Triage Chief Complaint: Lower Extremity Injury ED Provider: Pawel Cox Dx/Rx/DC Orders Instructions: ED Meniscal Injury Knee Poss, ED Knee Sprain Prescriptions: No Action Entresto 97-103 mg tablet 1 tab PO BID metoprolol succinate 25 mg tablet extended release 24 hr 25 mg PO DAILY Hold Instructions: cardiology holding Nurtec ODT 75 mg tablet,disintegrating 75 mg PO apixaban 5 MG tablet 5 mg PO BID (DME) blood sugar diagnostic Strip See Rx Instructions .ROUTE .MEDSUPPLY Qty: 100 0RF Rx Instructions: Test strips - test daily for hypoglycemia as needed (DME) blood-glucose meter Misc See Rx Instructions .ROUTE .MEDSUPPLY Qty: 1 0RF Rx Instructions: test daily for hypoglycemia as needed (DME) lancets Misc See Rx Instructions .ROUTE .MEDSUPPLY Qty: 100 0RF Rx Instructions: test daily for hypoglycemia as needed omeprazole 20 mg capsule,delayed release(DR/EC) 20 mg PO DAILY Qty: 60 0RF (DME) handicap placard See Rx Instructions .Route .MEDSUPPLY Qty: 1 0RF Rx Instructions: 5 year rx 07/28/22 - 07/28/27 Primary Care Provider: Jagruti Ferrari Referrals: Jagruti Ferrari MD [Primary Care Provider] - Rigo Garcia DO [Med Staff - Active Staff] - 3-5 Days Disposition Disposition: Home, Self Care
--- NOTE | 2023-12-08 13:35 | RAD_ITS ---
STUDY: X-RAY - RIGHT KNEE REASON FOR EXAM: Male, 43 years old. One month history of right knee pain. No evidence of injury. TECHNIQUE: 4 view(s) of the knee. COMPARISON: None. FINDINGS: Normal visualized distal femur. Normal visualized proximal tibia and fibula. Normal proximal tibiofibular articulation. Normal medial femorotibial compartment. Normal lateral femorotibial compartment. Normal patellofemoral articulation. The soft tissue structures are unremarkable. RAD/Knee 4 or More Views IMPRESSION: Normal x-ray examination of the knee. Electronically Signed: Casey Jiang MD at 13:49 EST ,
[2023-12-08] MEDS: Naproxen 500 MG Tablet PO (13:55)
== END 2023-12-08 13:56 | disposition home or self-care (01) ==
PROVIDERS: Emergency Provider Student in an Organized Health Care Education/Training Program; PCP Internal Medicine; Visit Provider Student in an Organized Health Care Education/Training Program
DX: M25.561 Pain in right knee (principal); I50.9 Heart failure, unspecified; Z95.810 Presence of automatic (implantable) cardiac defibrillator; Z79.899 Other long term (current) drug therapy; Z79.01 Long term (current) use of anticoagulants; Z90.49 Acquired absence of other specified parts of digestive tract
CPT/HCPCS: 73564; 99282

== ENCOUNTER 2023-12-09 11:52 | Emergency (ER) | payer MEDICARE, MEDICAID, SELFPAY ==
[2023-12-09 11:53] VITALS: BP 104/68; PULSE 78; RESP 18; TEMP 35.9; O2SAT 100; BMI 27.3
--- NOTE | 2023-12-09 12:42 | RAD_ITS ---
STUDY: X-RAY CHEST REASON FOR EXAM: Male, 43 years old. Cough and shortness of breath. TECHNIQUE: Single AP portable view of the chest. COMPARISON: Comparison is made with prior study dated March 16, 2022. FINDINGS: Hyperinflation. The lungs are clear. There is no demonstrated pleural abnormality. Normal size heart. A left-sided dual-chamber pacemaker is seen. Normal mediastinum and natanael. Normal visualized pulmonary arteries. Normal visualized aortic arch and descending thoracic aorta. Normal visualized thoracic spine. Normal visualized ribs, clavicles, and shoulders. There is no demonstrated abnormality of the visualized soft tissue structures of the upper abdomen. RAD/Chest 1 View (Portable) IMPRESSION: Normal x-ray examination of the chest. Electronically Signed: Casey Jiang MD at 13:22 EST ,
--- NOTE | 2023-12-09 12:45 | EDS_ITS ---
HPI History of Present Illness Chief Complaint: Cold Sx Informant: patient Onset/Context/Timing Onset: Yesterday Narrative Narrative: Patient presents with cough and congestion along with sore throat. He complains of chest tightness from coughing. His tested positive for COVID. He has not been tested. He did not take anything for his symptoms today. He is concerned about possibly having COVID because he has a defibrillator. [facility] Medical History Back problem Cardiac defibrillator in place Head ache Heart failure Implantable cardioverter-defibrillator (ICD) in situ Kawasaki disease Left shoulder pain SOB (shortness of breath) Home Medications metoprolol succinate 25 mg tablet,extended release 24 hr 25 mg PO DAILY 10/29/20 [History Last Taken Unknown] sacubitril 97 mg-valsartan 103 mg tablet (Entresto) 1 tab PO BID 10/29/20 [History Last Taken Unknown] blood sugar diagnostic #100 ea 02/02/21 [Rx Last Taken Unknown] blood-glucose meter #1 ea 02/02/21 [Rx Last Taken Unknown] lancets #100 ea 02/02/21 [Rx Last Taken Unknown] apixaban 5 mg tablet 5 mg PO BID 02/28/21 [History Last Taken Unknown] omeprazole 20 mg capsule,delayed release 20 mg PO DAILY #60 caps 03/17/22 [Rx Last Taken Unknown] rimegepant 75 mg disintegrating tablet (Nurtec ODT) 75 mg PO DAILY PRN migraine headache 06/08/22 [History Last Taken Unknown] handicap placard #1 ea 07/28/22 [Rx Last Taken Unknown] dapagliflozin propanediol 5 mg tablet (Farxiga) 5 mg PO DAILY 12/09/23 [History Last Taken Unknown] nitroglycerin 0.4 mg sublingual tablet 0.4 mg sublingual Q5M PRN chest pain 12/09/23 [History Last Taken Unknown] spironolactone 25 mg tablet 12.5 mg PO DAILY 12/09/23 [History Last Taken Unknown] Allergy/AdvReac Type Severity Reaction Status Date / Time ketorolac [From Toradol] AdvReac Upset Verified 12/08/23 12:42 Stomach morphine AdvReac Other Verified 12/08/23 12:42 Family History Father Heart disease Myocardial infarction Other Adopted Surgical History History of appendectomy Social History Smoking Status: Never smoker alcohol intake: never substance use type: does not use what type of physical activity do you participate in: none ROS ROS ED Constitutional Constitutional ED: Denies chills or fever(s) Eyes Eyes: Denies discharge from eye(s) ENT ENT ED: Reports sore throat; Denies discharge from eye(s) or rhinorrhea Cardiovascular Cardiovascular: Reports chest pain; Denies palpitations Respiratory/Chest Respiratory/Chest: Reports cough; Denies sputum Gastrointestinal Gastrointestinal: Denies abdominal pain, diarrhea, nausea or vomiting Genitourinary Genitourinary ED: Denies difficulty urinating or dysuria Musculoskeletal Musculoskeletal: Reports myalgias; Denies back pain or extremity pain Integumentary Denies Abrasions or rash Neurologic Neurologic: Reports headache(s) and weakness Psychiatric Psychiatric: Denies anxiety or depression Allergic/Immunologic Allergic/Immunologic ED: Denies lip swelling or urticaria EXAM Physical Exam Const Vital Signs: 12/09/23 11:53 12/09/23 12:47 Temperature 96.6 F L Temperature Source Temporal Pulse Rate 78 Respiratory Rate 18 Respiratory Effort Normal Respiratory Pattern Normal Blood Pressure 104/68 Blood Pressure Mean 80 Pulse Ox 100 Oxygen Delivery Method Room Air Positive well nourished and well developed General Appearance ED: well developed HEENT Reports moist mucous membranes HEENT Narrative: Posterior pharynx exam unremarkable. Uvula midline. Patient tolerating secretions well and speaks with a strong voice. Eyes EOMs intact bilaterally Chest Wall inspection of chest normal and palpation of chest normal Resp normal respiratory effort and clear to auscultation bilaterally Cardio regular rate and regular rhythm GI non-tender Palpation: soft Extremity normal to inspection Neuro oriented x3 and no sensory deficits noted Motor Exam: strength 5/5 throughout Psych mental status grossly normal Skin no rashes or lesions noted MDM MDM MDM Narrative Medical decision making narrative: Swab for COVID, influenza, and RSV will be ordered. Patient given Robitussin and Tylenol. EKG obtained to evaluate for cardiac arrhythmia/ischemia. Chest x-ray obtained to evaluate for acute lung pathology, cardiac size, or mediastinal abnormality. Radiography Diagnostic Testing: Clinical Impression(s) from Imaging Studies Chest X-Ray 12/09/23 12:42 IMPRESSION: Normal x-ray examination of the chest. Electronically Signed: Casey Jiang MD at 13:22 EST , Treatment and Re-Evaluation :: Portable chest x-ray per my interpretation was chronic changes with ICD in place. No focal infiltrate. Radiology interpretation reviewed and agrees. EKG is sinus rhythm at 68 bpm with an incomplete right bundle branch block. No acute ischemia. Swab for COVID, influenza, and RSV is negative at this time. On repeat evaluation patient resting comfortably. Test results discussed with him. I advised him to retest especially for COVID in the next couple days if he continues to have symptoms as he does have a known exposure. Patient will continue supportive care at home. Discharge Plan Triage Chief Complaint: Cold Sx ED Provider: Mary Jane Newsome Dx/Rx/DC Orders Clinical Impression: Viral syndrome Instructions: ED Viral Syndrome (Adult) Prescriptions: No Action Entresto 97-103 mg tablet 1 tab PO BID metoprolol succinate 25 mg tablet extended release 24 hr 25 mg PO DAILY Hold Instructions: [facility] mg tablet,disintegrating 75 mg PO DAILY PRN (Reason: migraine headache) apixaban 5 MG tablet 5 mg PO BID dapagliflozin propanediol [Farxiga] 5 mg tablet 5 mg PO DAILY Patient Comments: TAKE 1 TABLET BY MOUTH EVERY DAY IN THE MORNING nitroglycerin 0.4 mg tablet, sublingual 0.4 mg sublingual Q5M PRN (Reason: chest pain) Patient Comments: DISSOLVE 1 TABLET UNDER THE TONGUE NEEDED FOR CHEST PAIN- MAY REPEAT EVERY 5 MINUTES IF NEEDED ( MAX 3 DOSES.- IF NO RELIEF CALL 911) spironolactone 25 mg tablet 12.5 mg PO DAILY Patient Comments: TAKE 1/2 (ONE-HALF) OF A TABLET BY MOUTH ONCE DAILY (DME) blood sugar diagnostic Strip See Rx Instructions .ROUTE .MEDSUPPLY Qty: 100 0RF Rx Instructions: Test strips - test daily for hypoglycemia as needed (DME) blood-glucose meter Misc See Rx Instructions .ROUTE .MEDSUPPLY Qty: 1 0RF Rx Instructions: test daily for hypoglycemia as needed (DME) lancets Misc See Rx Instructions .ROUTE .MEDSUPPLY Qty: 100 0RF Rx Instructions: test daily for hypoglycemia as needed omeprazole 20 mg capsule,delayed release(DR/EC) 20 mg PO DAILY Qty: 60 0RF (DME) handicap placard See Rx Instructions .Route .MEDSUPPLY Qty: 1 0RF Rx Instructions: 5 year rx 07/28/22 - 07/28/27 Primary Care Provider: Jagruti Ferrari Referrals: Jagruti Ferrari MD [Primary Care Provider] - 1 Week if not improving Disposition Disposition: Home, Self Care
[2023-12-09] MEDS: Acetaminophen 500 MG Tablet 1000 MG PO (13:03)
[2023-12-09] MEDS: guaiFENesin Dm 10 ML UDC PO (13:24)
== END 2023-12-09 14:48 | disposition home or self-care (01) ==
PROVIDERS: Emergency Provider Emergency Medicine; PCP Internal Medicine; Visit Provider Emergency Medicine
DX: B34.9 Viral infection, unspecified (principal); I50.9 Heart failure, unspecified; Z79.899 Other long term (current) drug therapy; Z95.810 Presence of automatic (implantable) cardiac defibrillator; Z79.01 Long term (current) use of anticoagulants; Z90.49 Acquired absence of other specified parts of digestive tract; Z20.822 Contact with and (suspected) exposure to COVID-19
CPT/HCPCS: 71045; 87631; 93005; 99283